=== PATIENT | female | born 1950 | race Caucasian/White ===

== ENCOUNTER 2019-11-29 12:27 | Inpatient (IN) | payer MEDICARE ==
[~2019-11-29] VITALS: Ht 170.2 cm; Wt 69.9 kg
--- NOTE | ~2019-11-29 | CON ---
[address] [address] CONSULTATION Name: FARIDA VITALE Room: [address] IN M.R.#: [id number] Admission: 11/29/19 Attend Phys: Mila Ba Discharge: Date of : 46 Report #: [id number] THIS REPORT FOR: //name// cc: Krystian Francois MD, Ammon L. MD ~ THIS REPORT FOR: //name// CC: Krystian Cornejo DATE OF SERVICE: 12/14/2019 HISTORY OF PRESENT ILLNESS: This is a 68-year-old female patient who was evaluated by me for altered mental status. The patient is not a reliable historian. I talked to the nurses looking after this patient and we will try to reach the family. It is not certain how long this is going on. I reviewed the records. This patient came to Emergency Room because patient's neighbor called the police for wellness check and they did not find her well and brought her here. Record indicates she has atrial fibrillation, but is noncompliant with the treatment. Record indicates she has a history of rheumatoid arthritis. It does not look like she was taking her anticoagulation properly when she came to the hospital. She did have a CT scan of the head when she came on 10/29 that did not show any acute changes. One of the records says that usually she is oriented. That is all the history I can get in this patient at the moment. REVIEW OF SYSTEMS: Indicate that she had swelling in the lower extremities. Nurses tell me that she is progressively becoming better. Even then, her mental status is not very good. She has been slow to respond to questions. She has a history of pleural effusion. She has a stenosis of multiple vessels. I am not sure what the etiology of that is. She has encephalopathy. She has been seen by multiple consultants during this hospitalization. Presently, she is not on any anticoagulation and in fact has a chest tube put in. It is very difficult to get more history in this patient because the patient's mentation is not very good. She has been noticed to have atrial flutter, history of brachial thrombosis, rheumatoid arthritis, history of melanoma, hypernatremia. One of the records says she also has trace ascites and cardiomegaly. This was a relevant 14-point review of system I could get. PAST MEDICAL HISTORY: Positive for multiple problems. FAMILY HISTORY: Unavailable. SOCIAL HISTORY: Somewhat confusing because records says that she was in because the neighbor called the police but other records say differently. We will try to contact some family member [place] [address] CONSULTATION Name: FARIDA VITALE Room: [address] ADM IN .R.#: [id number] Admission: 11/29/19 Attend Phys: Mila Ba Discharge: Date of : 46 Report #: [id number] PHYSICAL EXAMINATION: Indicate patient is alert. She is responsive. She does not know what month it is. She could tell me what hospital she is in, but she did not know the name of president and she said it is He[facility] Crow. Cranial nerve examination 2-12 was attempted, but she was not able to cooperate. The exam was suboptimal, but looks nonfocal. She moves all 4 extremities. She does not understand the instruction to do the position sense. Touch looks intact. Reflexes she did not relax. She did not understand the instructions for doing the cerebellar examination and she did not cooperate with the fundus. It was difficult to carry out rest of the neurological examination. Pulses are difficult to feel. She had some edema, but does not look too bad now. She has atrial fibrillation. She does have respiratory difficulty and in fact is being followed by Pulmonary. She is moderately built individual who does not have any dysmorphic features of eyes, ears and face. Blood pressure is 131/73, respiration is 19, pulse is 68, temperature is 96.7. LABORATORY DATA: White count is 7.7. Sodium is 142. She did have a CT scan on admission that was reviewed and does not show any acute abnormality. IMPRESSION: Pretty difficult to form in this patient. I cannot reach any family and it is possible she has some underlying dementia and she got decompensated by superimposed encephalopathy, but the diagnosis of dementia is always difficult to make in the presence of encephalopathy especially in these circumstances when no family member who is living with her is available. RECOMMENDATION: I will discuss the patient with you. I will get an EEG done. Depending upon the chest tube, we may have to do an MRI of the brain or repeat CT. We will talk to the deputy clerk before doing that and I will discuss the patient with you before doing any of that. We will also try to reach some family if we can. Thank you very much for this referral. By: [id number] Ramírez MD /nt
--- NOTE | ~2019-11-29 | EEG ---
[address] [address] EEG STUDY REPORT Name: FARIDA VITALE Room: [address] IN .R.#: [id number] Admission: 11/29/19 Attend Phys: Mila Ba Discharge: Date of : 46 Report #: [id number] THIS REPORT FOR: //name// CC: Krystian Cornejo DATE OF SERVICE: 12/15/2019 This patient is being evaluated for altered mental status. EEG was done by placing the electrode by standard 10-20 system of electrode placement. Both referential and sequential montages were used for recording. Background activity in this patient's EEG is about 7 Hz and 30 mV. It is symmetrical activity. The patient became drowsy that is associated with bilateral slowing. Photic stimulation is unremarkable. No active epileptiform activity was noticed. IMPRESSION AND PLAN: This patient's EEG is slow in generalized fashion. That is a nonspecific abnormality, which can occur with dementia, encephalopathy, and effect of psychotropic medication. The EEG also appeared to be symmetrical. It is not clear if it is because of artifact or it is real. Thank you very much for this referral. By: [id number] Ramírez MD /nt
[~2019-11-29 12:27] MED LIST: ADULT LOW DOSE81 MG PO; ELIQUIS5 MG PO; HYDROXYCHLOROQ200 M1 PO; IBUPROFEN 800800 M1 PO; LEVOTHYROXIN0.025 MG PO; LOSARTAN PO; METHOTREXATE 22.5 MG PO; THREONINE PO; VITAMIN D2000 UNIT PO
[2019-11-29 12:28] VITALS: BP 157/79
[2019-11-29] MEDS ORDERED: TRAMADOL 50 MG50 MG PO (12:31)
[2019-11-29] MEDS ORDERED: TYLENOL325 M1 PO (12:32)
[2019-11-29 13:10] LABS: HEMATOCRIT 37.5 % (37.0-47.0); HEMOGLOBIN 11.6 gm/dL (12.0-15.0); MCH 26.4 pg (26.0-34.0); MCV 85.2 fL (80.0-100.0); MPV 7.5 fl. (7.2-11.1); NUCLEATED RBCS 0 /100WBC; PLATELET COUNT* 351 thou/uL (150-400); RDW-CV 18.1 % (10.5-14.5); WBC 21.6 thou/uL (4.0-11.0)
[2019-11-29 13:17] LABS: APTT 31.1 Seconds (25.0-31.3); CALCIUM 8.4 mg/dL (8.5-10.1); CREATININE 0.9 mg/dL (0.6-1.3); INR 1.1; POTASSIUM 5.1 mmol/L (3.5-5.1); PROTIME 11.5 Seconds (9.20-11.50)
[2019-11-29] MEDS ORDERED: ZANAFLEX4 M1 PO (13:22)
[2019-11-29] MEDS ORDERED: ELIQUIS5 MG PO (13:22)
[2019-11-29] MEDS ORDERED: CYTOMEL50 MCG PO (13:22)
[2019-11-29] MEDS ORDERED: K-DUR10 MEQ PO (13:23)
[2019-11-29] MEDS ORDERED: LASIX 40 MG TAB40 MG PO (13:23)
[2019-11-29] MEDS ORDERED: METHOTREXATE 22.5 M1 PO (13:23)
[2019-11-29] MEDS ORDERED: LEVO-T100 MCG PO (13:23)
[2019-11-29] MEDS ORDERED: FOLIC ACID1 MG PO (13:23)
[2019-11-29] MEDS ORDERED: CLARITIN10 M3 PO (13:24)
[2019-11-29] MEDS ORDERED: VITAMIN D325 MC4 PO (13:24)
[2019-11-29 13:27] LABS: TOTAL BILIRUBIN 0.9 mg/dL (<0.1-1.0)
[2019-11-29 13:30] LABS: ABSOLUTE LYMPHOCYTES 0.9 thou/uL (0.8-5.3); ABSOLUTE MONOCYTES 0.6 thou/uL (0.0-1.2); ABSOLUTE NEUTROPHILS 20.1 thou/uL (1.6-8.1); ANISOCYTOSIS 1+; PLATELET ESTIMATE ADEQUATE
--- NOTE | 2019-11-29 15:17 | EKG ---
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1950 Requested By: Regan Pettit Order Number: [id number] MD: Víctor Crabtree Measurements Intervals [place] Rate: 87 P: 71 HI: 148 QRS: 21 QRSD: 90 T: 151 QT: 342 QTc: 412 Interpretive Statements Sinus rhythm Supraventricular bigeminy Borderline low voltage, extremity leads Abnormal T, consider ischemia, lateral leads Compared to ECG 11/24/2015 23:29:38 T-wave abnormality now present Possible ischemia now present Electronically Signed On 11-29-2019 15:17:23 CDT by Víctor Crabtree [email or web address] <ELECTRONICALLY SIGNED> By: Víctor Crabtree MD, [facility] 11/29/19 1517 1234 1234 Víctor Crabtree MD, [facility] /EPI
[2019-11-29 16:02] VITALS: BP 137/72
[2019-11-29 16:35] VITALS: BP 146/97
--- NOTE | 2019-11-29 18:20 | NUR ---
PT ADMITTED TO FLOOR AT 1630 FROM ER. PLACED ON O2 2L NC, SATS IN UPPER 90S. AFIB ON MONITOR. PT INCOHERENT PERIODS OF TIME, DENIES PAIN. AOX1-2, ORIENTED PT TO ROOM AND BED CONTROLS, PLACED ON BED ALARM. ADMISSION INTERVENTIONS COMPLETED. DR. MANN AWARE OF PT. STATUS AND ARRANGING THORACENTESIS. PT IN BED, SLEEPING, IN NO APPARENT DISTRESS AT TIME OF SHIFT CHANGE.
[2019-11-29 19:52] LABS: BE 3.1 mmol/L (-2 to +3); PCO2 VENOUS 62.3 mmHg (41.0-51.0); PO2 VENOUS 32.9 mmHg (35.0-45.0)
[2019-11-29 20:00] VITALS: BP 128/82
[2019-11-30] VITALS: BP 136/95
[2019-11-30 04:00] VITALS: BP 146/89
[2019-11-30 08:00] VITALS: BP 158/59
[2019-11-30 12:59] LABS: BF RBC 1855006 /mm3; TOTAL CELL COUNT 1108 /mm3
[2019-11-30 13:19] LABS: CLARITY TURBID; SOURCE THORACENTESIS; TOTAL VOLUME 2150 ml
[2019-11-30 13:26] LABS: BF LYMPHOCYTES 28 %; BF POLYS 72 %
[2019-11-30 13:27] LABS: BF OTHER CYTO TO FOLLOW
[2019-11-30 16:16] LABS: ALBUMIN 2.5 g/dL (3.4-5.0); CALCIUM 8.1 mg/dL (8.5-10.1); CREATININE 0.9 mg/dL (0.6-1.3); POTASSIUM 4.1 mmol/L (3.5-5.1); TOTAL BILIRUBIN 0.6 mg/dL (<0.1-1.0); TOTAL PROTEIN 6.5 g/dL (6.4-8.2)
[2019-11-30 16:23] VITALS: BP 112/65
--- NOTE | 2019-11-30 18:24 | NUR ---
PATIENT RESTING IN BED. THORACENTESIS COMPLETD TODAY. LEFT LUNG SOUND IMPROVEMENT. VSS. PATIETN IN NO APPARNET DISTRESS. RESPIRATORY RATE CONTINUIES AT 25-25 PER/MINUTE. 4L PER NASAL CANULA WIT O2 SAT OF 100%.
[2019-11-30 20:00] VITALS: BP 108/68
[2019-12-01] VITALS: BP 113/62
[2019-12-01 04:00] VITALS: BP 104/56
[2019-12-01 05:05] LABS: ABSOLUTE LYMPHOCYTES 0.4 thou/uL (0.8-5.3); ABSOLUTE MONOCYTES 0.3 thou/uL (0.0-1.2); ABSOLUTE NEUTROPHILS 10.8 thou/uL (1.6-8.1); HEMATOCRIT 38.9 % (37.0-47.0); HEMOGLOBIN 12.1 gm/dL (12.0-15.0); LYMPHOCYTES 3.9 %; MCH 26.4 pg (26.0-34.0); MCHC 31.2 g/dL (28.0-37.0); MCV 84.8 fL (80.0-100.0); MONOCYTES 2.9 %; NUCLEATED RBCS 0 /100WBC; PLATELET COUNT* 331 thou/uL (150-400); POLYS 93.2 %; RBC 4.58 mil/uL (4.20-5.00); RDW-CV 17.3 % (10.5-14.5); WBC 11.6 thou/uL (4.0-11.0)
[2019-12-01 05:15] LABS: INR 1.1; PROTIME 11.5 Seconds (9.20-11.50)
[2019-12-01 05:39] LABS: ALBUMIN 2.4 g/dL (3.4-5.0); CALCIUM 7.9 mg/dL (8.5-10.1); CREATININE 0.8 mg/dL (0.6-1.3); POTASSIUM 3.4 mmol/L (3.5-5.1); TOTAL BILIRUBIN 0.6 mg/dL (<0.1-1.0); TOTAL PROTEIN 6.2 g/dL (6.4-8.2)
[2019-12-01 08:00] VITALS: BP 126/71
[2019-12-01 12:28] VITALS: BP 108/72
[2019-12-01 16:49] VITALS: BP 136/79
--- NOTE | 2019-12-01 18:40 | NUR ---
PATIENT RESTING IN BED. 4L PER NASAL CANULA. POSSIBLE THORACENTESIS TOMORROW PER PULMONARY. AOX2 AND NEED FFREQUENT REORIENTATIOPN. CONVERSATIONO WAS HAD WITH HER NIECE, LAN PLASENCIA @ [phone], REGARDING POTENTIAL ASSISTANCE WITH DECISION MAKING PROCESS, SHE WAS HESITANT. SPOKE WITH CLOSEST FRIEN AND NEIGHBOR WHO WERE INFORMATIVE REGARDING HER PREVIOUS LEVEL OF FUNCTION. THEY BOTH EXPRESSED CONCERNS ABOUT HER ABILITY TO RETURN HONME SAFELY. HOURLY ROUNDING COMPLETED FOR PATINET SAFETY.
[2019-12-01 20:00] VITALS: BP 104/63
[2019-12-02] VITALS (7 sets, daily range): BP systolic 105–141; BP diastolic 47–90
--- NOTE | 2019-12-02 10:34 | NUR ---
RECEIVED CALL FROM PT'S FRIEND AVEL. SHE STATES THAT SHE IS CONCERNED FOR PT SHE HAS NOT BEEN TAKING CARE OF HERSELF OR HER HOUSE SINCE HER 2 YEARS AGO. A NEIGHBOR SHAY HELPS PT. PT HAS NO FAMILY. SHE STATES THAT PT IS INTERMITTENTLY CONFUSED "BECAUSE SHE PLAYS AROUND WITH HER PILLS AND DOESNT TAKE THEM RIGHT SOMETIMES". WILL PASS ON CONCERNS TO CM
--- NOTE | 2019-12-02 11:56 | NUR ---
PT UNABLE TO SIGN CONSENT. NO FAMILY. NO DPOA. DISCUSSED WITH DR CORRALES AND DR MCKEE. CONSENT SIGNED BY STAFF MEDICAL NECESSITY
--- NOTE | 2019-12-02 12:25 | CON ---
[address] [address] CONSULTATION Name: FARIDA VITALE Room: [address] IN [facility]#: [id number] Admission: 11/29/19 Attend Phys: Mila Ba Discharge: Date of : 46 Report #: [id number] THIS REPORT FOR: //name// cc: Krystian Francois MD, Ammon L. MD ~ THIS REPORT FOR: //name// CC: Krystian Cornejo DATE OF SERVICE: 12/01/2019 CARDIOLOGY CONSULTATION HISTORY OF PRESENT ILLNESS: The patient is a very pleasant 68-year-old female who presented with altered mental status to the Emergency Room yesterday. She was noted to have in addition to the altered mental status, a left hemothorax with shifting of the mediastinum to the right. She ultimately underwent ultrasound-guided thoracentesis with removal of 2800 mL of bloody fluid. There is a past medical history of melanoma and rheumatoid arthritis. The patient is more comfortable today, is breathing better and there is more clarity in her historical responses. She denies chest pain or dyspnea. PRIOR MEDICATIONS: Have included Tylenol, apixaban or Eliquis 5 mg b.i.d., furosemide, L-thyroxine, methotrexate, folic acid, cholecalciferol, loratadine. There is a history of right brachial embolic event in the past and the patient has been anticoagulated with Eliquis up until this admission. It has been continued in the presence of the left hemothorax. SOCIAL HISTORY: The patient is a nonsmoker. Drinks occasionally. She functions independently. REVIEW OF SYSTEMS: Remarkable for the following: GENERAL: There is altered mental status on admission. PULMONARY: The patient was dyspneic on admission, which is improved at this point. MUSCULOSKELETAL: There is a history of rheumatoid arthritis. PHYSICAL EXAMINATION: GENERAL: Demonstrates a frail-appearing elderly female who [place] [address] CONSULTATION Name: FARIDA VITALE Room: [address] IN [facility]#: [id number] Admission: 11/29/19 Attend Phys: Mila Ba Discharge: Date of : 46 Report #: [id number] VITAL SIGNS: Blood pressure is 125/70, pulse rate is 103 and regular, respirations are 24 per minute. NECK: Jugular venous pressure is normal. CHEST: Clear. CARDIAC: Reveals normal first and second heart sounds and a mildly tachycardic rate. LUNGS: Auscultation of the chest demonstrates decreased breath sounds in the lower half of the left chest. ABDOMEN: Mildly distended. EXTREMITIES: Reveal modest bilateral lower extremity edema. LABORATORY DATA: Remarkable for white blood cell count 11,600, hemoglobin 12.1, platelets 331,000. Sodium 145, potassium 3.4, BUN 29, creatinine 0.8. Troponin less than 0.06. NT-BNP 6263. Albumin 2.4, prealbumin 10.8. Thoracentesis, 2800 mL of bloody fluid were removed, with data regarding that fluid pending. IMPRESSION: 1. Left hemothorax with mediastinal shift to the right. 2. 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 3. Removal of 2800 mL of bloody fluid from the left hemothorax on 11/29. 4. History of melanoma. 5. History of rheumatoid arthritis. RECOMMENDATIONS: 1. We should not restart Eliquis in the context of the markedly bloody fluid removed from the left chest yesterday. 2. Echocardiogram regarding LV size and function as well as the presence or absence of pericardial disease and/or fusion. 3. We will follow with you. Thank you for allowing us to see the patient in cardiovascular assessment. Critical care time is 35 minutes from overnight and 30 at 1005 on 12/01/2019. <ELECTRONICALLY SIGNED> By: Víctor Crabtree MD, FACC 12/02/19 1225 1005 1024Víctor Crabtree MD, FACC /nt
[2019-12-02 13:23] LABS: CALCIUM 7.7 mg/dL (8.5-10.1); CREATININE 0.8 mg/dL (0.6-1.3); MAGNESIUM 1.9 mg/dL (1.8-2.4); POTASSIUM 3.3 mmol/L (3.5-5.1)
--- NOTE | 2019-12-02 13:33 | 2DMMODE ---
[place] [address] 2 D/M-MODE ECHOCARDIOGRAM Name: FARIDA VITALE Room: [address] IN [facility]#: [id number] Admission: 11/29/19 Attend Phys: Era Cornejo Discharge: Date of : 46 Date of Service: 12/02/19 1333 Report #: [id number] THIS REPORT FOR: cc: Krystian Francois MD, Ammon L. MD Holkins,Víctor Swanson MD [facility] ~ APPROVED REPORT Study performed: 12/02/2019 10:47:03 EXAM: Comprehensive 2D, Doppler, and color-flow Echocardiogram Patient Location: In-Patient Room #: [facility] Status: routine BSA: 1.92 HR: 107 bpm BP: 141/83 mmHg Rhythm: NSR Other Information Technically limited study due to uncooperative patient. Indications Dyspnea 2D Dimensions IVSd: 14.06 (7-11mm) LVOT Diam: 19.89 (18-24mm) LVDd: 42.34 mm PWd: 12.30 (7-11mm) LVDs: 30.17 (25-40mm) Aortic Root: 32.41 mm Volumes Left Atrial Volume (Systole) LA ESV Index: 44.90 mL/m2 Aortic Valve AoV Peak Donnell.: 1.28 m/s AO Peak Gr.: 6.59 mmHg LVOT Max P.53 mmHg AO Mean Gr.: 4.51 mmHg LVOT Mean P.26 mmHg LVOT Max V: 1.28 m/s AO V2 VTI: 22.42 cm LVOT Mean V: 0.86 m/s KORIN (VTI): 2.72 cm2 LVOT V1 VTI: 19.61 [place] [address] 2 D/M-MODE ECHOCARDIOGRAM Name: FARIDA VITALE Room: [address] IN [facility]#: [id number] Admission: 11/29/19 Attend Phys: Era Cornejo Discharge: Date of : 46 Date of Service: 12/02/19 1333 Report #: [id number] Pulmonary Valve PV Peak Donnell.: 1.16 m/s PV Peak Gr.: 5.39 mmHg Left Ventricle The left ventricle is normal size. There is normal LV segmental wall motion. There is normal left ventricular wall thickness. Left ventricular systolic function is normal. The left ventricular ejection fraction is within the normal range. LVEF is 65-70%. Right Ventricle The right ventricle is normal size. The right ventricular systolic function is normal. Atria Left atrium is moderately dilated. The right atrium size is normal. Aortic Valve The aortic valve is normal in structure. No aortic regurgitation is present. There is no aortic valvular stenosis. Mitral Valve There is mitral annular calcification. There is no mitral valve regurgitation noted. No evidence of mitral valve stenosis. Tricuspid Valve The tricuspid valve is normal in structure. Unable to assess PA pressure. Trace tricuspid regurgitation. Pulmonic Valve The pulmonary valve is normal in structure. There is no pulmonic valvular regurgitation. Great Vessels The aortic root is normal in size. IVC is normal in size and collapses >50% with inspiration. Pericardium There is no pericardial effusion. <Conclusion> The left ventricle is normal size. There is normal left ventricular wall thickness. Left ventricular systolic function is normal. The left ventricular ejection fraction [place] [address] 2 D/M-MODE ECHOCARDIOGRAM Name: FARIDA VITALE Room: [address] IN .R.#: [id number] Admission: 11/29/19 Attend Phys: Era Cornejo Discharge: Date of : 46 Date of Service: 12/02/19 1333 Report #: [id number]. LVEF is 65-70%. Left atrium is moderately dilated. The right atrium size is normal. The aortic valve is normal in structure. There is mitral annular calcification. There is no mitral valve regurgitation noted. No evidence of mitral valve stenosis. The tricuspid valve is normal in structure. IVC is normal in size and collapses >50% with inspiration. There is no pericardial effusion. There is normal LV segmental wall motion. <ELECTRONICALLY SIGNED> By: Víctor Crabtree MD, [facility] 12/02/19 1333 32 32 Víctor Crabtree MD, FACC /INF
--- NOTE | 2019-12-02 15:22 | NUR ---
CM INFORMED BY NURSING THAT THE PT IS FROM [facility]. CM SPOKE TO ISABELL WITH ADMISSIONS AT [facility] AND SHE INFORMS THAT THE PT IS A LTC RESIDENT. PT'S SON MARCUS IS THE DPOA. CM ATTEMPTED TO CONTACT THE PT'S SON TO DISCUSS DISCHARGE PLANNING NEEDS AND AM AWAITING A CALLBACK. CM FAXED [facility] PT'S FACESHEET AND H&P. CM WILL REMAIN AVAILABLE TO ASSIST AND FOLLOW NEEDED.
--- NOTE | 2019-12-02 15:31 | NUR ---
CM INFORMED THAT THE PT IS CONFUSED AND TO CONTACT HER NEIGHBOR AND FRIEND (SHAY) FOR INFO ABOUT THE PT. CM CONTACTED SHAY AND SHE INFORMS THAT THE PT HAD BEEN MORE CONFUSED RECENTLY. SHAY CHECKS-IN ON THE PT 2X DAILY AND ASSIST HER WITH BATHING, DRESSING, PREPARING LIGHT MEALS AND MEDICATION SETUP, AND SOME LIGHT INSIDE TESTER. PT RESIDES AT HOME ALONE, AND HAS NOT BEEN TAKING GOOD CARE OF HESELF 'NOT BATHING, EATING, OR TAKING HER MEDICATIONS. SHE IS VERY FORETFUL, PLACING THINGS ODDLY AROUND THE HOUSE (FOOD UNDER THE SINK), FORGETTING WHERE SHE IS AND MIXING UP HER DAYS AND NIGHTS'. SHE ALSO INFORMS THAT THE PT HAD BEEN HOTLINED TWICE RECENTLY. PT HAS POOR FAMILY SUPPORT, AND ONLY HAS A NIECE. HOWEVER THE NIECE HAS DECLINED TO MAKE ANY DECISIONS FOR THE PT. PT'S SPOUSE AND BROTHER PASSED IN 2017 AND 2019, AND NO OTHER FAMILY IS KNOWN. SHAY INFORMS THAT SHE 'CAN NO LONGER BE OF ASSISTANCE' TO THE PT AND 'CAN NOT HELP HER IF AND WHEN SHE RETURN HOME' HER 'MENTAL STATUS AND THE PHYSICAL ASSISTANCE NEEDED TO HELP HER IS MORE THAN I CAN DO ANYMORE'. PT DOES NOT HAVE A DPOA. CM AWAITNG CALL FROM [facility] THE PT HAS BEEN HOTLINED. CM WILL REMAIN AVAILABLE TO ASSIST AND FOLLOW NEEDED.
[2019-12-02 16:17] LABS: SOURCE PLEURAL FLUID; TOTAL VOLUME 860 ml
[2019-12-02 16:18] LABS: CLARITY TURBID
[2019-12-02 16:51] LABS: BF RBC 1287382 /mm3; TOTAL CELL COUNT 595 /mm3
--- NOTE | 2019-12-02 17:42 | NUR ---
PT RESTING IN BED THROUGHOUT SHIFT. PT REPOSITIONS SELF FREQUENTLY. CONFUSED. PT WILL OCASSIONALLY ATTEMPT TO PULL AT IV LINE AND FREEMAN BUT EASILY REDIRECTED. THORACENTESIS THIS AFTERNOON. PT SOA WITH EXERTION.02@2L. GOOD APPETITE. SPOKE TO FRIENDS AND UPDATED THEM ON CARE.
[2019-12-02 18:06] LABS: CA 27.29-BREAST CARCINOMA AG 37.1 U/mL (0.0-38.6)
[2019-12-02 18:09] LABS: BF LYMPHOCYTES 8 %; BF MONOCYTES 4 %; BF POLYS 88 %
--- NOTE | 2019-12-02 19:08 | NUR ---
PT TACHYCARDIC. REPORTS RIGHT SIDE CHEST PAIN,DIAPHORETIC. LUNGS SOUNDS DIMINISHED ON RIGHT
[2019-12-03 00:30] VITALS: BP 113/59
[2019-12-03 02:06] LABS: BODY FLUID PH 7.3 (Not Estab.)
[2019-12-03 04:28] VITALS: BP 110/66
[2019-12-03 04:57] LABS: HEMATOCRIT 42.3 % (37.0-47.0); HEMOGLOBIN 12.9 gm/dL (12.0-15.0); MCH 26.4 pg (26.0-34.0); MCHC 30.5 g/dL (28.0-37.0); MCV 86.3 fL (80.0-100.0); MPV 8.2 fl. (7.2-11.1); NUCLEATED RBCS 0 /100WBC; PLATELET COUNT* 320 thou/uL (150-400); RDW-CV 17.7 % (10.5-14.5); WBC 14.4 thou/uL (4.0-11.0)
--- NOTE | 2019-12-03 05:29 | NUR ---
PT HR 130-140 PROVIDER NOTIFED ORDERS RECIEVED. HR RETURING TO NORMAL LIMITS. NEW IV PLACED IN PT AFTER PT REMOVED PREVIOUS IV. PT REMAINS ALERT TO ONLY SELF AND CONFUSED. HEART MONITOR PLACED ON PT BACK DUE TO PT REMOVING HEART MONITOR, PT GIVEN ATIVAN WITH LITTLE EFFECT ON PT.
[2019-12-03 05:49] LABS: ALBUMIN 2.9 g/dL (3.4-5.0); CALCIUM 8.6 mg/dL (8.5-10.1); CREATININE 0.8 mg/dL (0.6-1.3); MAGNESIUM 2.2 mg/dL (1.8-2.4); POTASSIUM 3.8 mmol/L (3.5-5.1); TOTAL BILIRUBIN 0.9 mg/dL (<0.1-1.0); TOTAL PROTEIN 6.6 g/dL (6.4-8.2)
[2019-12-03 07:46] LABS: ABSOLUTE LYMPHOCYTES 1.7 thou/uL (0.8-5.3); ABSOLUTE MONOCYTES 0.7 thou/uL (0.0-1.2); ANISOCYTOSIS 1+; ATYPICAL LYMPHS 4 %; PLATELET ESTIMATE ADEQUATE
[2019-12-03 08:00] VITALS: BP 109/59
--- NOTE | 2019-12-03 09:42 | EKG ---
[place] [address] ELECTROCARDIOGRAM REPORT Name: FARIDA VITALE Room: [address] ADM IN .R.#: [id number] Admission: 11/29/19 Attend Phys: Era Cornejo Discharge: Date of : 46 Date of Service: 12/02/192057 Report #: [id number] THIS REPORT FOR: //name// [facility] Test Date: 2019-12-02 Test Time: 20:58:08 Pat Name: FARIDA VITALE Department: Room: [address] Gender: F Kaiawhina Kohanga Reo: : 1950 Requested By: Yazmin Callejas Order Number: [id number] Reading MD: Clive Alfaro Measurements Intervals [place] Rate: 138 P: [place]: QRS: 7 QRSD: 80 T: 149 QT: 319 QTc: 484 Interpretive Statements Atrial fibrillation Borderline low voltage, extremity leads Borderline repolarization abnormality Compared to ECG 11/29/2019 12:34:17 Sinus rhythm no longer present Atrial premature complex(es) no longer present T-wave abnormality no longer present Possible ischemia no longer present Electronically Signed On 12-03-2019 9:42:35 CDT by Clive Alfaro [email or web address] <ELECTRONICALLY SIGNED> By: Clive Alfaro MD, [facility] 12/03/19941 57 57 Clive Alfaro MD, [facility] /EPI
--- NOTE | 2019-12-03 11:27 | NUR ---
Pt not medically ready to dc and also pending guardianship process, placement challenges likely. SW to continue to follow to assist with finalizing safe dc plan.
[2019-12-03 12:00] VITALS: BP 113/67
[2019-12-03 16:00] VITALS: BP 103/48
[2019-12-03 19:30] VITALS: BP 111/58
[2019-12-04] VITALS: BP 114/65
[2019-12-04 04:00] VITALS: BP 134/69
[2019-12-04 04:49] LABS: ABSOLUTE LYMPHOCYTES 0.5 thou/uL (0.8-5.3); ABSOLUTE MONOCYTES 0.7 thou/uL (0.0-1.2); ABSOLUTE NEUTROPHILS 9.1 thou/uL (1.6-8.1); BASOPHILS 0.2 %; HEMATOCRIT 36.2 % (37.0-47.0); HEMOGLOBIN 11.3 gm/dL (12.0-15.0); LYMPHOCYTES 4.8 %; MCH 26.7 pg (26.0-34.0); MCHC 31.1 g/dL (28.0-37.0); MCV 85.7 fL (80.0-100.0); MONOCYTES 7.2 %; MPV 8.2 fl. (7.2-11.1); NUCLEATED RBCS 0 /100WBC; POLYS 87.8 %; RBC 4.22 mil/uL (4.20-5.00); RDW-CV 17.5 % (10.5-14.5); WBC 10.3 thou/uL (4.0-11.0)
[2019-12-04 04:51] LABS: PLATELET COUNT* 230 thou/uL (150-400)
[2019-12-04 05:00] LABS: ALBUMIN 2.6 g/dL (3.4-5.0); ALKALINE PHOSPHATASE 78 U/L (46-116); BUN 27 mg/dL (7-18); CHLORIDE 109 mmol/L (98-107); CREATININE 0.7 mg/dL (0.6-1.3); GLUCOSE 120 mg/dL (70-99); MAGNESIUM 2.2 mg/dL (1.8-2.4); POTASSIUM 3.9 mmol/L (3.5-5.1); SGOT 66 U/L (15-37); SGPT 69 U/L (30-65); SODIUM 154 mmol/L (136-145); TOTAL BILIRUBIN 0.8 mg/dL (<0.1-1.0); TOTAL PROTEIN 5.6 g/dL (6.4-8.2)
[2019-12-04 05:03] LABS: CO2 > 45 mmol/L (21-32)
--- NOTE | 2019-12-04 06:52 | NUR ---
PT UNABLE TO PASS BEDSIDE SWALLOW, PLACED ON NPO AND SPEECH WAS CONSULTED.
[2019-12-04 08:00] VITALS: BP 107/61
[2019-12-04 09:18] LABS: BE 12.8 mmol/L (-2 to +3); PO2 85.9 mmHg (75.0-100.0); pH 7.385 (7.340-7.450)
[2019-12-04 09:21] LABS: PCO2 69.2 mmHg (35.0-45.0)
[2019-12-04 12:35] LABS: ANION GAP < 0 mmol/L (7-16); BUN 25 mg/dL (7-18); CALCIUM 8.2 mg/dL (8.5-10.1); CHLORIDE 105 mmol/L (98-107); CREATININE 0.8 mg/dL (0.6-1.3); GLUCOSE 203 mg/dL (70-99); POTASSIUM 4.4 mmol/L (3.5-5.1); SODIUM 149 mmol/L (136-145)
[2019-12-04 12:37] LABS: CO2 45 mmol/L (21-32)
[2019-12-04 13:00] VITALS: BP 151/103
--- NOTE | 2019-12-04 15:31 | NUR ---
KYRA received message from pt neighbor Virgilio to follow up with pt dc planning and status. Virgilio is concerned with pt bird in pt home and Virgilio assists with feeding and caring for the bird while pt has been hospitalized and also noticed that her bills are going to be due. SW suggested since pt did want pt neighbor to help care for bird and gave her a gary, this should be acceptable and that since there is no a financial DPOA, there is unfortunately nothing to be able to pay them for pt. Pt neighbor plans to call the utilities and explain situation to possibly hold or at least make the companies aware of inability of pt to take care of bills at the moment. KYRA spoke with legal about guardianship process this morning and the question is to also involve neurologist and 2 doctors needed to declare pt incapacitated; if this is the case, then legal willing to move on to next step in the process. SW was informed pt medical status is poor; SW to continue to follow to assist with pt needs and support team as necessary.
[2019-12-04 16:20] VITALS: BP 138/71
[2019-12-04 16:31] LABS: SOURCE THORACENTESIS
[2019-12-04 16:32] LABS: SOURCE PLEURAL
[2019-12-04 16:46] LABS: URINE BILIRUBIN NEGATIVE (Negative); URINE BLOOD NEGATIVE (Negative); URINE CLARITY CLEAR; URINE COLOR YELLOW; URINE GLUCOSE-RANDOM NEGATIVE (Negative); URINE KETONES TRACE (Negative); URINE LEUKOCYTES-REFLEX NEGATIVE (Negative); URINE NITRITE-REFLEX NEGATIVE (Negative); URINE PROTEIN 1+ (Negative)
--- NOTE | 2019-12-04 19:50 | NUR ---
PT. AOX1-2, CONFUSED, FLAT AFFECT, AMIODARONE ADMINISTERED FOR HR CONTROL, DENIES PAIN. IVF INFUSING WITHOUT COMPLICATIONS. SITTER IN ROOM FOR OBSERVATION AND ASSIST WITH MEALS. CALL LIGHT AND PERSONAL BELONGINGS PLACED WITHIN REACH. PT IN BED, SLEEPING, IN NO APPARENT DISTRES, AT SHIFT CHANGE.
[2019-12-04 21:00] VITALS: BP 152/86
[2019-12-05] VITALS: BP 145/97
[2019-12-05 04:00] VITALS: BP 149/98
--- NOTE | 2019-12-05 05:25 | NUR ---
No acute event this shift. Pt AOX2. Pt has a sitter. Pt calm and pleasant overnight. IVF infusing as order. Antibiotic given per jul. Cortez cath draining well. Urine for Strep/Legionella antigen collected, sent to lab. Pt on 3L NC sat 90's. Pt denies pain. Reposition Q2, Safety precaution, hourly rounding, will continue to monitor.
[2019-12-05 05:35] LABS: ABSOLUTE LYMPHOCYTES 0.3 thou/uL (0.8-5.3); ABSOLUTE MONOCYTES 0.2 thou/uL (0.0-1.2); ABSOLUTE NEUTROPHILS 8.3 thou/uL (1.6-8.1); BASOPHILS 0.1 %; HEMATOCRIT 35.3 % (37.0-47.0); HEMOGLOBIN 11.2 gm/dL (12.0-15.0); LYMPHOCYTES 3.3 %; MCH 27.1 pg (26.0-34.0); MCHC 31.6 g/dL (28.0-37.0); MCV 85.6 fL (80.0-100.0); MONOCYTES 1.9 %; MPV 8.2 fl. (7.2-11.1); NUCLEATED RBCS 0 /100WBC; PLATELET COUNT* 192 thou/uL (150-400); POLYS 94.7 %; RBC 4.12 mil/uL (4.20-5.00); RDW-CV 17.4 % (10.5-14.5); WBC 8.8 thou/uL (4.0-11.0)
[2019-12-05 06:38] LABS: ALBUMIN 2.5 g/dL (3.4-5.0); ALKALINE PHOSPHATASE 79 U/L (46-116); ANION GAP < 0 mmol/L (7-16); BUN 19 mg/dL (7-18); CALCIUM 7.5 mg/dL (8.5-10.1); CHLORIDE 104 mmol/L (98-107); CO2 42 mmol/L (21-32); CREATININE 0.6 mg/dL (0.6-1.3); GLUCOSE 138 mg/dL (70-99); POTASSIUM 4.3 mmol/L (3.5-5.1); SGOT 116 U/L (15-37); SGPT 151 U/L (30-65); SODIUM 145 mmol/L (136-145); TOTAL BILIRUBIN 0.9 mg/dL (<0.1-1.0); TOTAL PROTEIN 5.5 g/dL (6.4-8.2)
[2019-12-05 08:00] VITALS: BP 151/79
--- NOTE | 2019-12-05 10:00 | NUR ---
RIGHT BASILC VESSEL ACCESSED FOR 4 ENGLISH SINGLE LUMEN PICC. LINE PRE-TRIMMED TO 40CM AND ADVANCED TO THE ZERO ISSAC WITH NO RESISTANCE MET. UPPER ARM CIRCUMFERENCE ABOVE INSERTION SITE=11 1/2". SHERLOCK MAGNET AND 3CG CONFIRMATION OF TIP TERMINATION AT THE CAVOATRIAL JUNCTION APPRECIATED. GUIDE WIRE REMOVED, LINE FLUSHED AND INSERTION SITE DRESSED. REPORT GIVEN TO HEATHER BROWN.
--- NOTE | 2019-12-05 10:07 | PATH ---
[address] [address] PATHOLOGY RPT PROCEDURE Name: FARIDA VITALE Room: [address] IN [facility]#: [id number] Admission: 11/29/19 Date of : 46 Discharge: Report #: [id number] Path Case #: [id number] Note LCA Accession Number: [id number] TESTS RESULT FLAG UNITS REF RANGE LAB Clinician Provided Cytology Information No. of containers..01 Other (Miscellaneous) Source: LEFT PLEURAL FLUID DIAGNOSIS: 02 LEFT PLEURAL FLUID NEGATIVE FOR MALIGNANT CELLS. REACTIVE MESOTHELIAL CELLS ARE PRESENT. THIS INTERPRETATION INCLUDES EVALUATION OF A CELL BLOCK. ABUNDANT RED BLOOD CELLS ARE PRESENT. COMMENT, MOSTLY BLOOD IS PRESENT WITH VERY FEW CELLS. SUGGEST CLINICAL CORRELATION. Signed out by: 02 Harpal Gerber MD, Pathologist NPI- [id number] Performed by: Amrit George, Handling Tech ([facility]) Gross description: 01 40ML, DARK RED, 1 TP 1 CB /LCS 12/03/2019 1757 Local FLAG LEGEND: L-Low Normal,H-High Normal,LL-Alert Low,HH-Alert High <-Panic Low,>-Panic High,A-Abnormal,AA-Critical Abnormal Performed at: [address] [place] [address] Saurabh Martinez MD, NNEKA[address] [address] Chacorta Dozier MD, Specimen Comment: A courtesy copy of this report has been sent to [phone] Specimen Comment: [phone], Specimen Comment: Report sent to ,DR CORRALES / DR MANN Specimen Comment: A duplicate report has been generated due to demographic updates. Performed at: [address], [place], [place] [id number] [place] [address] PATHOLOGY RPT PROCEDURE Name: FARIDA VITALE Room: [address]#: [id number] Admission: 11/29/19 Date of : 46 Discharge: Report #: [id number] Path Case #: [id number] MD [facility] MD Phone: [phone]
--- NOTE | 2019-12-05 10:07 | PATH ---
[address] [address] PATHOLOGY RPT PROCEDURE Name: FARIDA VITALE Room: [address] IN [facility]#: [id number] Admission: 11/29/19 Date of : 46 Discharge: Report #: [id number] Path Case #: [id number] Note LCA Accession Number: [id number] TESTS RESULT FLAG UNITS REF RANGE LAB Clinician Provided Cytology Information No. of containers..01 Other (Miscellaneous) Source: 01 PLEURAL FLUID DIAGNOSIS: 02 PLEURAL FLUID NEGATIVE FOR MALIGNANT CELLS. RED BLOOD CELLS ARE PRESENT. SCANT CELLULARITY. THIS INTERPRETATION INCLUDES EVALUATION OF A CELL BLOCK. COMMENT, MOSTLY BLOOD IS PRESENT. SUGGEST CLINICAL CORRELATION THE SPECIMEN MIGHT NOT BE CHANCELLOR. Signed out by: 02 Harpal Gerber MD, Pathologist NPI- [id number] Performed by: 01 Farheen George, Chemist Intern ([facility]) Gross description: 01 40ML, DARK RED, 1 TP 1 CB /LCS 12/03/2019 1801 Local FLAG LEGEND: L-Low Normal,H-High Normal,LL-Alert Low,HH-Alert High <-Panic Low,>-Panic High,A-Abnormal,AA-Critical Abnormal Performed at: [address] [place] [address] Saurabh Martinez MD, [address] [address] Chacorta Dozier MD, Specimen Comment: A courtesy copy of this report has been sent to [phone] Specimen Comment: [id number] Specimen Comment: Report sent to / DR MILLER Specimen Comment: A duplicate report has been generated due to demographic updates. Performed at: [address], [place], [place] [id number] [place] [address] PATHOLOGY RPT PROCEDURE Name: FARIDA VITALE Room: [address] IN ..#: [id number] Admission: 11/29/19 Date of : 46 Discharge: Report #: [id number] Path Case #: [id number] [facility] Phone: [phone]
[2019-12-05 12:00] VITALS: BP 150/94
[2019-12-05 16:47] VITALS: BP 130/70
--- NOTE | 2019-12-05 16:56 | NUR ---
KYRA spoke with pt neighbor Virgilio again about possible will in the house to bring in, but Virgilio explained she thought there might be paperwork that could be helpful but there are piles of papers to go through and she hasn't found anything yet. KYRA called pt doctor's office and left a message as well as US faxed records request to request any possible AD or will or any past medical information that would be helpful in determining pt wishes related to care plan. Pending possible guardianship process and SW to continue to follow to assist with safe dc planning.
--- NOTE | 2019-12-05 18:56 | NUR ---
RECEVIED REPORT. ASSUMED CARE OF PT AROUND 0730. PT DROWSY, CONFUSED. ORIENTED TO PERSON. SITTER IN PLACE. SPECIAL SERVICES COORDINATOR IN PLACE. AM ASSESSMENT AND VITALS COMPLETED CHARTED. PT DENIED PAIN OR DISCOMFORT THIS SHIFT. O2 TITRATED DOWN TO 2L PER NC. PT TO USE THE BIPAP WHEN SLEEPING BUT REFUSED THIS SHIFT. RT CALLED NOW TO RETRY FOR NIGHT TIME. PT ABLE TO WORK WITH THERAPY TO GET UP TO BEDSIDE CHAIR. FREEMAN IN PLACE TO DD. GHAZALA PICC PLACED TODAY. PT TURNED OFTEN. PT WITH FAIR APPETITE - TOLERATED ABOUT 35% OF MEALS. IV ANTIBIOTICS CONTINUED. PT CURRENTLY RESTING IN BED. CALL LIGHT IS WITHIN REACH, HOURLY ROUNDING PERFORMED. FALL PRECAUTIONS IN PLACE. SITTER IN PLACE.
[2019-12-05 20:30] VITALS: BP 133/75
[2019-12-06] VITALS (15 sets, daily range): BP systolic 85–144; BP diastolic 38–72
[2019-12-06 05:08] LABS: BE 9.6 mmol/L (-2 to +3); PO2 80.5 mmHg (75.0-100.0)
[2019-12-06 05:10] LABS: pH 7.298 (7.340-7.450)
[2019-12-06 05:11] LABS: PCO2 81.3 mmHg (35.0-45.0)
[2019-12-06 05:12] LABS: ABSOLUTE LYMPHOCYTES 0.3 thou/uL (0.8-5.3); ABSOLUTE MONOCYTES 0.2 thou/uL (0.0-1.2); ABSOLUTE NEUTROPHILS 7.7 thou/uL (1.6-8.1); BASOPHILS 0.1 %; HEMATOCRIT 35.1 % (37.0-47.0); HEMOGLOBIN 11.1 gm/dL (12.0-15.0); MCHC 31.7 g/dL (28.0-37.0); MPV 8.3 fl. (7.2-11.1); NUCLEATED RBCS 0 /100WBC; PLATELET COUNT* 207 thou/uL (150-400); POLYS 93.9 %; RBC 4.12 mil/uL (4.20-5.00); RDW-CV 16.6 % (10.5-14.5); WBC 8.2 thou/uL (4.0-11.0)
[2019-12-06 05:40] LABS: ALBUMIN 2.6 g/dL (3.4-5.0); ALKALINE PHOSPHATASE 80 U/L (46-116); ANION GAP < 0 mmol/L (7-16); BUN 22 mg/dL (7-18); CALCIUM 7.6 mg/dL (8.5-10.1); CHLORIDE 106 mmol/L (98-107); CO2 41 mmol/L (21-32); CREATININE 0.6 mg/dL (0.6-1.3); GLUCOSE 128 mg/dL (70-99); POTASSIUM 4.4 mmol/L (3.5-5.1); SGOT 73 U/L (15-37); SGPT 157 U/L (30-65); SODIUM 146 mmol/L (136-145); TOTAL BILIRUBIN 0.6 mg/dL (<0.1-1.0); TOTAL PROTEIN 5.4 g/dL (6.4-8.2)
--- NOTE | 2019-12-06 06:24 | NUR ---
VSS. PT UP TO CHAIR MUCH OF THE EVENING, TOLERATED WELL. KELLEN TUBIGRIPS REMOVED BY PT AT BEDTIME AND BLE ELEVATED. PT AWOKE X1 C/O BURNING PAIN IN BILATERAL LEGS BELOW KNEE STATING "IT FEELS LIKE MY LEGS ARE ON FIRE." PT DECLINED NEED FOR PAIN MEDICATION. CALL LIGHT WITHIN REACH.
--- NOTE | 2019-12-06 06:32 | NUR ---
VSS. PT REFUSED BIPAP ALL NIGHT, O2 SAT REMAINED 90% ON 2L O2 PER NC. ABG'S OBTAINED THIS AM ORDERED, CRITICAL VALUES CALLED TO DR MCKEE WHO WAS ALSO NOTIFIED OF PTS REFUSAL OF BIPAP; NO NEW ORDERS. RT AGAIN TRIED TO PLACE BIPAP, HOWEVER, PT IMMEDIATELY BECAME AGITATED PUSHING THE MASK/RT'S HAND AWAY. SITTER REMAINED AT BEDSIDE AT ALL TIMES, REDIRECTION AND REORIENTATION TO REALITY PROVIDED FREQUENTLY. CALL LIGHT WITHIN REACH.
--- NOTE | 2019-12-06 08:00 | NUR ---
ASSUMED CARE OF PATIENT FROM NIGHT NURSE. PT IS ON A 1 TO 1 AND IS RESTLESS AND REFUSED TO USE THE BIPAP. SHE WAS EDUCATED ON PLAN OF CARE AND DISEASE PROCEES.
--- NOTE | 2019-12-06 11:30 | NUR ---
PT SENT TO THE ICU AND REPORT GIVEN TO LY.
--- NOTE | 2019-12-06 11:47 | NUR ---
Pt to transfer to ICU today for thoracentesis and intubation. Pending guardian process, med rec request was sent to [facility] yesterday. Pt friend Virgilio at ph [phone] helpful with answering any questions and shows caring and concern for pt. Future CM needs if pt improves would be placement pending guardianship process.
--- NOTE | 2019-12-06 13:50 | NUR ---
Nutrition: Assessed for LOS. Admitted for pleural effusion. Pt was eating fair amounts on diet, now NPO. H/o dementia - apparently trying to arrange guardianship for pt, per SW notes. BG 101, alb 2.6, prealb 19.5. GOAL: timely diet advancement and good po intake. Mild nutrition risk at this time.
--- NOTE | 2019-12-06 14:45 | NUR ---
1110 PATIENT RECEIVED IN TRANSFER PER BED TO ICU 4. SEE ASSESSMENT. BIPAP PLACED AT 14/5 AND 50%. EDUCATED PATIENT ON BIPAP. PT IS FORGETFUL BUT SEEMS TO UNDERSTAND INSTRUCTIONS. SITTER FOR SAFETY.
--- NOTE | 2019-12-06 14:47 | NUR ---
1400 THORACENTESIS DONE AT BEDSIDE BY DR DIAZ. FOLLOW UP CHEST FILM ORDERED
--- NOTE | 2019-12-06 15:05 | EKG ---
[place] [address] ELECTROCARDIOGRAM REPORT Name: FARIDA VITALE Room: [address] IN .R.#: [id number] Admission: 11/29/19 Attend Phys: Era Cornejo Discharge: Date of : 46 Date of Service: 12/06/19 1150 Report #: [id number] THIS REPORT FOR: //name// [facility] Test Date: 2019-12-06 Test Time: 11:50:31 Pat Name: FARIDA VITALE Department: Room: [facility] Gender: F Master Control Supervisor: : [id number] Requested By: Stefania Preston Order Number: [id number] MD: Robi Carbone Measurements Intervals [place] Rate: 54 P: 37 DC: 178 QRS: 31 QRSD: 91 T: 134 QT: 435 QTc: 413 Interpretive Statements Sinus bradycardia Low voltage, extremity leads Nonspecific T abnormalities, lateral leads Compared to ECG 12/02/2019 20:58:08 Atrial fibrillation no longer present Electronically Signed On 12-06-2019 15:04:53 CDT by Robi Carbone [email or web address] <ELECTRONICALLY SIGNED> By: Robi Carbone MD, [facility] 12/06/19 1504 1150 1150 Robi Carbone MD, [facility] /EPI
[2019-12-06 15:21] LABS: BF RBC 2118 /mm3; CLARITY CLEAR; SOURCE PLEURAL FLUID; TOTAL CELL COUNT 159 /mm3; TOTAL VOLUME 500 ml
[2019-12-06 15:41] LABS: BF LYMPHOCYTES 94 %; BF MONOCYTES 1 %; BF POLYS 5 %
--- NOTE | 2019-12-06 17:32 | NUR ---
PATIENT PROGRESSING TOWARDS SOME GOALS. CAME TO ICU FROM TELEMETRY AT 110 THIS AM. MAINTAINED ON BIPAP AND THEN AVAPS WITH ACCEPTAVLE SATS.THORACENTESIS COMPLETED WITH FOLLOW UP CHEST FILM. PT ORIENTED ONLY TO SELF BUT ABLE TO FOLLOW COMMANDS. PRECEDEX AVAILABLE BUT HAVE NOT STARTED IT YET. PT IN SINUS EMILY WITH SOME SOFT BLOOD PRESSURES FOLLOWING DIURESIS. FRIEND HASCALLED.
[2019-12-06 17:49] LABS: ALBUMIN 2.4 g/dL (3.4-5.0); ALKALINE PHOSPHATASE 73 U/L (46-116); ANION GAP < 0 mmol/L (7-16); BUN 24 mg/dL (7-18); CALCIUM 7.4 mg/dL (8.5-10.1); CHLORIDE 104 mmol/L (98-107); CO2 44 mmol/L (21-32); CREATININE 0.8 mg/dL (0.6-1.3); GLUCOSE 147 mg/dL (70-99); POTASSIUM 3.8 mmol/L (3.5-5.1); SGOT 49 U/L (15-37); SGPT 132 U/L (30-65); SODIUM 144 mmol/L (136-145); TOTAL BILIRUBIN 0.5 mg/dL (<0.1-1.0)
[2019-12-06 18:23] LABS: BE 13.7 mmol/L (-2 to +3); pH 7.392 (7.340-7.450)
[2019-12-06 18:28] LABS: PCO2 69.2 mmHg (35.0-45.0); PO2 147.3 mmHg (75.0-100.0)
--- NOTE | 2019-12-06 19:20 | NUR ---
RECEIVED REPORT FROM PRADEEP BROWN ANS ASSUMED CARE
--- NOTE | 2019-12-06 20:00 | NUR ---
ASSESSMENT COMPLETED PER FLOW. PT AROUSES EASILY. HR 50'S SB WITHOUT ECTOPY. SOFT B/P WITH MAP 75. CONT'S ON BIPAP AND IS COMFORTABLE WITH SATS .95% FREEMAN PATENT TO DD. SHE DENIES PAIN
[2019-12-07] VITALS (20 sets, daily range): BP systolic 92–115; BP diastolic 40–64
--- NOTE | 2019-12-07 01:41 | NUR ---
PATIENT HAS LARGELY SLEPT THUS FAR. B/P 100S/50S WITH CONSISTENT MAP> 70. SHE CONTINUES TO DENY PAIN AND HAS TOUCHED HER MASK OR ATTEMPTED TO REMOVE ANYTHING. POSITION CHANGED Q 2HR
[2019-12-07 03:26] LABS: HEMATOCRIT 30.7 % (37.0-47.0); HEMOGLOBIN 9.7 gm/dL (12.0-15.0); MCH 26.7 pg (26.0-34.0); MCHC 31.7 g/dL (28.0-37.0); MCV 84.2 fL (80.0-100.0); MPV 8.4 fl. (7.2-11.1); NUCLEATED RBCS 0 /100WBC; PLATELET COUNT* 174 thou/uL (150-400); RBC 3.65 mil/uL (4.20-5.00); WBC 5.6 thou/uL (4.0-11.0)
[2019-12-07 03:50] LABS: ALBUMIN 2.4 g/dL (3.4-5.0); ALKALINE PHOSPHATASE 67 U/L (46-116); ANION GAP < 0 mmol/L (7-16); BUN 23 mg/dL (7-18); CHLORIDE 103 mmol/L (98-107); CO2 43 mmol/L (21-32); CREATININE 0.7 mg/dL (0.6-1.3); GLUCOSE 158 mg/dL (70-99); MAGNESIUM 1.8 mg/dL (1.8-2.4); POTASSIUM 4.3 mmol/L (3.5-5.1); SGOT 42 U/L (15-37); SGPT 117 U/L (30-65); SODIUM 145 mmol/L (136-145); TOTAL BILIRUBIN 0.7 mg/dL (<0.1-1.0); TOTAL PROTEIN 4.8 g/dL (6.4-8.2)
[2019-12-07 06:08] LABS: ABSOLUTE LYMPHOCYTES 0.2 thou/uL (0.8-5.3); ABSOLUTE MONOCYTES 0.1 thou/uL (0.0-1.2); ABSOLUTE NEUTROPHILS 5.3 thou/uL (1.6-8.1)
[2019-12-07 06:09] LABS: PLATELET ESTIMATE ADEQUATE
--- NOTE | 2019-12-07 07:38 | NUR ---
PT STABLE HEMODYNAMICALLY ALL NIGHT. HR 50'S SB WITHOUT ECTOPY. MAP >70 CONSISTENTLY. SMALL STOOL AT SHIFT CHANGED. PERIC CARE AND TURN DONE AT THIS TIME. PT IS ALERT, NONVERBAL BUT NODS APPROPRIATELY TO QUESTIONS. REPORT GIVEN TO PRADEEP BROWN
--- NOTE | 2019-12-07 08:07 | NUR ---
8096 ASSUMED CARE OF PATIENT. PLEASE SEE DOCUMENTED ASSESSMENT
[2019-12-07 09:46] LABS: BE 14.2 mmol/L (-2 to +3); pH 7.446 (7.340-7.450)
[2019-12-07 09:48] LABS: PCO2 59.9 mmHg (35.0-45.0); PO2 153.3 mmHg (75.0-100.0)
--- NOTE | 2019-12-07 15:25 | NUR ---
MANSI PLASENCIA CALLED AND WANTS TO BE ON THE CONTACT LIST FOR THIS PATIENT. SHE STATES SHE IS THE ONLY LIVING RELATIVE. HER PHONE NUMBER IS [phone]. FRIENDS WHO ARE ON CONTACT LIST HAVE SAID THAT MANSI HAS NOT BEEN IN TOUCH WITH PATIENT FOR SOME TIME.
[2019-12-07 16:23] LABS: ANION GAP < 0 mmol/L (7-16); BUN 23 mg/dL (7-18); CALCIUM 7.8 mg/dL (8.5-10.1); CHLORIDE 105 mmol/L (98-107); CO2 40 mmol/L (21-32); CREATININE 0.7 mg/dL (0.6-1.3); GLUCOSE 179 mg/dL (70-99); MAGNESIUM 2.3 mg/dL (1.8-2.4); POTASSIUM 3.4 mmol/L (3.5-5.1); SODIUM 144 mmol/L (136-145)
[2019-12-07 16:49] LABS: SOURCE THORACENTESIS
[2019-12-07 16:53] LABS: SOURCE THORACENTESIS
--- NOTE | 2019-12-07 18:42 | NUR ---
PATIENT MAKING MINIMAL PROGRESS. HAS REMAINED ON AVAPS WITH FIO2 NOW AT 30%. GIVEN ALBUMIN WITH DIURETIC. POTASSIUM REPLACEMENT IN PROGRESS. GIVEN ATIVAN TWICE FOR ANXIETY. PT KNOWS SHE IS ANXIOUS AND WAS TEARFUL AT TIMES. FRIENDS HAVE CALLED. MANSI ALSO CALLED BUT PT HAD NOT PLACED HER ON CONTACT LIST ON ADMISSION. PT ORIENTED TO SELF ONLY. SINUS EMILY WITH RATE IN 40'S MOST OF THE TIME.
[2019-12-08] VITALS (21 sets, daily range): BP systolic 93–137; BP diastolic 39–71
[2019-12-08 04:51] LABS: ABSOLUTE LYMPHOCYTES 0.3 thou/uL (0.8-5.3); ABSOLUTE MONOCYTES 0.2 thou/uL (0.0-1.2); ABSOLUTE NEUTROPHILS 4.3 thou/uL (1.6-8.1); BASOPHILS 0.1 %; HEMATOCRIT 27.6 % (37.0-47.0); HEMOGLOBIN 8.9 gm/dL (12.0-15.0); LYMPHOCYTES 5.5 %; MCH 26.8 pg (26.0-34.0); MCHC 32.4 g/dL (28.0-37.0); MCV 82.7 fL (80.0-100.0); MONOCYTES 3.3 %; MPV 7.8 fl. (7.2-11.1); NUCLEATED RBCS 0 /100WBC; PLATELET COUNT* 135 thou/uL (150-400); POLYS 91.1 %; RBC 3.33 mil/uL (4.20-5.00); RDW-CV 17.5 % (10.5-14.5); WBC 4.8 thou/uL (4.0-11.0)
[2019-12-08 05:01] LABS: ALBUMIN 3.2 g/dL (3.4-5.0); CALCIUM 7.8 mg/dL (8.5-10.1); CREATININE 0.8 mg/dL (0.6-1.3); MAGNESIUM 2.3 mg/dL (1.8-2.4); POTASSIUM 3.6 mmol/L (3.5-5.1); TOTAL BILIRUBIN 0.9 mg/dL (<0.1-1.0); TOTAL PROTEIN 5.1 g/dL (6.4-8.2)
--- NOTE | 2019-12-08 07:42 | NUR ---
ASSUMED CARE OF PATIENT. PLEASE SEE DOCUMENTED ASSESSMENT. PT ISORIENTED TO SELF ONLY
[2019-12-08 08:47] LABS: BE 6.6 mmol/L (-2 to +3); PCO2 44.7 mmHg (35.0-45.0); PO2 116.1 mmHg (75.0-100.0); pH 7.461 (7.340-7.450)
--- NOTE | 2019-12-08 10:26 | NUR ---
1000 PLACED ON 2 LPM NASAL CANNULA. PATIENT RELAXED AT THIS TIME,DENIES ANY PAIN. SHE SEEMS VERY GUARDED AND HOLDS ARMS UP FOLDED OVER HER CHEST.
--- NOTE | 2019-12-08 17:57 | NUR ---
PATIENT PROGRESSING TOWARDS GOALS. OFF OF AVAPS SINCE 1000. O2 SATS UP TO 100% ON 2LPM NASAL CANNULA. OCCASIONAL ANXIETY DEMONSTRATED BY TACHYPNEA. TOLERATED CLEAR LIQUID TRAY BUT DID NEED TO BE FED. SPEECH IS CLEARER,ORIENTED X 2 THIS AFTERNOON. FRIEND AVEL VISITED TODAY AND OTHER FRIEND LYNN AND SHAY HAVE CALLED. PHYSICIANS DID NOT WANT TO ADVANCE TO TELE STATUS YET.
[2019-12-09] VITALS (18 sets, daily range): BP systolic 110–162; BP diastolic 52–79
[2019-12-09 03:49] LABS: ABSOLUTE LYMPHOCYTES 0.3 thou/uL (0.8-5.3); ABSOLUTE MONOCYTES 0.3 thou/uL (0.0-1.2); ABSOLUTE NEUTROPHILS 7.7 thou/uL (1.6-8.1); BASOPHILS 0.2 %; HEMATOCRIT 29.4 % (37.0-47.0); HEMOGLOBIN 9.4 gm/dL (12.0-15.0); LYMPHOCYTES 3.4 %; MCH 27.1 pg (26.0-34.0); MCV 84.6 fL (80.0-100.0); MONOCYTES 3.4 %; MPV 8.4 fl. (7.2-11.1); NUCLEATED RBCS 0 /100WBC; PLATELET COUNT* 145 thou/uL (150-400); RBC 3.48 mil/uL (4.20-5.00); RDW-CV 17.9 % (10.5-14.5); WBC 8.3 thou/uL (4.0-11.0)
[2019-12-09 04:02] LABS: ALBUMIN 2.9 g/dL (3.4-5.0); CALCIUM 7.7 mg/dL (8.5-10.1); CREATININE 0.6 mg/dL (0.6-1.3); POTASSIUM 4.3 mmol/L (3.5-5.1); TOTAL BILIRUBIN 0.7 mg/dL (<0.1-1.0); TOTAL PROTEIN 4.8 g/dL (6.4-8.2)
[2019-12-09 10:47] LABS: BE -0.6 mmol/L (-2 to +3); PCO2 47.4 mmHg (35.0-45.0); PO2 104.3 mmHg (75.0-100.0); pH 7.346 (7.340-7.450)
--- NOTE | 2019-12-09 17:01 | NUR ---
ICU rounds: On bipap with sleep. Continues to be alert but confused. AMOR spoke with Dr Stella Mcdaniels's nurse, at Pt's PCP's office, she informed that Pt was last seen in their office on 08/09/2019, but noted that they do not have a DPOA or AD on file. Per nurse, in 03/2018, Pt reported that she had one, but Pt never brought the form in. CM to attempt to contact Pt's cardiology and shop hand office. CM spoke with Pt's friend, Salena. Salena informed that Pt had asked her to be her DPOA in the past, Salena stated that in order for her to agree to do it, she would want to sit down and speak with Pt regarding her wishes, and that conversation never happened. Salena also informed that Pt was at [facility] last year, CM to contact [facility] to see if they have a DPOA/AD on file. Salena provided CM with Pt's niece's contact info, Naty Erazo [phone], niece states that she has never stated that she does not want to be involved in Pt's POC, niece stated that she and the Pt have been discussing Pt's wishes, so she is more than happy to be involved in making sure that Pt gets what she needs. CM added nibasim to contact list so that she can recieve info regarding Pt, updated ICU nurse. CM spoke with CM Mgr to inform of new info, Mgr to check with legal to see if guardianship still needs to be pursued. CM to continue to assess Pt to see if a DPOA can be completed. Following.
--- NOTE | 2019-12-09 20:00 | NUR ---
RECEIVED REPORT AND ASSUMED CARE OF PT, ASSESSMENT COMPLETED. PT ORIENTED TO PERSON AND PLACE, FORGETFUL. O2 ON AT 2L/NC. TELEMETRY ON SHOWING SR. WILL CONT TO MONITOR AND ASSIST NEEDED.
[2019-12-10] VITALS: BP 152/80
[2019-12-10 02:06] LABS: BODY FLUID PH 7.6 (Not Estab.)
[2019-12-10 04:00] VITALS: BP 112/60
--- NOTE | 2019-12-10 06:04 | NUR ---
AWAKE FREQ, AGITATED AND PULLING AT BIPAP. SITTER AT BEDSIDE SHORT PERIODS WHEN AWAKE BUT IS ABLE TO NAP. REMOVED AT 0400 BY RT AND NC RESUMED. LASIX GIVEN ORDERED WITH LG AMT EXPELLED PER FREEMAN. NO CHANGE IN ASSESSMENT. TELEMETRY CONT TO SHOW SR. HS GOALS OF REST AND SAFETY ACHIEVED. HOURLY ROUNDING OBSERVED.
[2019-12-10 07:40] VITALS: BP 117/82
--- NOTE | 2019-12-10 09:24 | NUR ---
CM requested that Pre Cert update Pt's facesheet, noting Pt's niece, Naty, as her person to contact and next of kin. CM contacted Dr Burns's office [phone], Pt's certified diabetes educator, they saw Pt on 11/[address] through visit and noted that Pt seemed confused and "off", but was able to identify her nurse. Pt does not have a DPOA/AD on file with their office. CM contacted Pt's calendar control clerk blood bank office, Dr Sloan [phone], they noted that Pt has not been in their office since 07/03/18 and informed that they do not have a DPOA/AD on file at their office. Staff to continue to contact Pt's niece, Naty, regarding any healthcare needs or questions [phone].
[2019-12-10 11:20] LABS: HEMATOCRIT 34.6 % (37.0-47.0); HEMOGLOBIN 10.8 gm/dL (12.0-15.0); MCH 26.1 pg (26.0-34.0); MCHC 31.3 g/dL (28.0-37.0); MCV 83.4 fL (80.0-100.0); MPV 8.2 fl. (7.2-11.1); NUCLEATED RBCS 0 /100WBC; PLATELET COUNT* 173 thou/uL (150-400); RBC 4.15 mil/uL (4.20-5.00); RDW-CV 17.7 % (10.5-14.5); WBC 11.2 thou/uL (4.0-11.0)
[2019-12-10 11:24] LABS: CALCIUM 7.7 mg/dL (8.5-10.1); MAGNESIUM 1.8 mg/dL (1.8-2.4); POTASSIUM 3.5 mmol/L (3.5-5.1)
[2019-12-10 11:48] LABS: ABSOLUTE LYMPHOCYTES 0.3 thou/uL (0.8-5.3); ABSOLUTE MONOCYTES 0.1 thou/uL (0.0-1.2); ABSOLUTE NEUTROPHILS 10.8 thou/uL (1.6-8.1); HYPOCHROMASIA 1+; PLATELET ESTIMATE ADEQUATE
[2019-12-10 11:49] LABS: ANISOCYTOSIS 1+; POIKILOCYTOSIS 1+
[2019-12-10 12:06] LABS: BODY FLUID LDH 129 IU/L (()); BODY FLUID PROTEIN 1.1 g/dL (())
[2019-12-10 12:09] VITALS: BP 135/66
--- NOTE | 2019-12-10 13:07 | PATH ---
[address] [address] PATHOLOGY RPT PROCEDURE Name: FARIDA VITALE Room: [address] IN [facility]#: [id number] Admission: 11/29/19 Date of : 46 Discharge: Report #: [id number] Path Case #: [id number] Note LCA Accession Number: [id number] TESTS RESULT FLAG UNITS REF RANGE LAB Clinician Provided Cytology Information No. of containers..01 Other (Miscellaneous) Source: RIGHT PLEURAL FLUID DIAGNOSIS: 02 RIGHT PLEURAL FLUID NEGATIVE FOR MALIGNANCY. REACTIVE MESOTHELIAL CELLS AND FEW INFLAMMATORY CELLS. THIS INTERPRETATION INCLUDES EVALUATION OF A CELL BLOCK. Signed out by: 02 Michael De Paz MD, Pathologist NPI- [id number] Performed by: 01 Ayleen Lemus, Racing Manager ([facility]) Gross description: 01 40ML, HAZY YELLOW, 1 TP 1 CB /LCS 12/09/2019 1239 Local FLAG LEGEND: L-Low Normal,H-High Normal,LL-Alert Low,HH-Alert High <-Panic Low,>-Panic High,A-Abnormal,AA-Critical Abnormal Performed at: 01 [facility] [address] [place] [address] Saurabh Martinez MD, [address] [address] Michael De Paz MD, Specimen Comment: A courtesy copy of this report has been sent to [phone] Specimen Comment: Report sent to Performed at: 01 [facility] [address], [place], [place] [id number] MD Saurabh Martinez MD Phone: [phone]
--- NOTE | 2019-12-10 16:05 | NUR ---
PATIENT TURNED Q2. CONTINUES TRACING SR ON RN CARDIOVASCULAR. FREEMAN DRAINING DARK YELLOW URINE. INSULIN WITH MEALS WHEN REQUIRED. PATIENT CONFUSED THIS AFTERNOON, WAS ALERT AND ORIENTED X 3 FOR SHORT PERIOD THIS AM. MULT SCHED IV ABX INFUSED ORDERED. CM WORKING ON PATIENT DPOA FOR PLACEMENT. POTASSIUM AND MAGNESIUM REPLACED PER DR. MCKEE'S ORDERS. CXR SHOWED NO CHANGED.
[2019-12-10 16:33] VITALS: BP 113/66
--- NOTE | 2019-12-10 17:48 | NUR ---
KYRA called pt efrem Alfonso [phone] to follow up and discuss extent of pt niece involvement and if Naty would be willing and able to be appointed as guardian, she was willing and agreed to being able to be appointed guardian of healthcare decisions but did not want to be finacially responsible. 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 Pt niece plans to speak with pt neighbor/friend Virgilio and pt niece said she would make a trip here to assist with handling any possible needs when timing was appropriate. Pt efrem lives in [facility] and is also considering that she could move her aunt to [place] to be closer to her. KYRA to continue to follow to assist with safe dc planning.
[2019-12-10 20:30] VITALS: BP 134/60
[2019-12-11 00:05] VITALS: BP 139/80
[2019-12-11 04:00] VITALS: BP 116/61
--- NOTE | 2019-12-11 05:35 | NUR ---
VITALS STABLE, AFEBRILE. PT OREINTED TO PLACE AND PRESIDENT. NOT ORIENTED TO TIME, SITUATION. CONFUSED AT TIMES, ASKS WHEN THE REPAIRMAN IS GOING TO COME AND WHY HE DOESN'T GIVE HER ATTENTION ANYMORE. REORIENTED NEEDED. EASILY REORIENTABLE, PLEASANT. ABLE TO KEEP BIPAP ON THROUGH THE NIGHT WITH SOME SUPERVISION. OTHERWISE UNEVENTFUL NIGHT. Q2 TURNS FOR SKIN INTEGRITY. CALL LIGHT WITHIN REACH. BED ALARM ON. WILL CONTINUE MONITORING.
[2019-12-11 06:03] LABS: CALCIUM 7.5 mg/dL (8.5-10.1); CREATININE 0.7 mg/dL (0.6-1.3); POTASSIUM 3.7 mmol/L (3.5-5.1)
[2019-12-11 08:00] VITALS: BP 99/72
--- NOTE | 2019-12-11 09:08 | NUR ---
RECIEVED REPORT AROUND 0710. ASSUMED CARE. PT LETHARGIC AND ORIENTED X2. ATTACHED TO HEART MONITOR WITH SB AND PAC. FREEMAN INTACT. PT LYING IN BED. IS ON BEDREST. CALL LIGHT AND BEDSIDE TABLE WITH IN REACH. WILL CONTINUE TO MONITOR.
[2019-12-11 12:30] VITALS: BP 115/68
[2019-12-11 16:00] VITALS: BP 109/57
--- NOTE | 2019-12-11 16:51 | NUR ---
Pt remains with confusion, bipap at night, CT this morning, Dr Bridges said that there is question whether or not another thoracentesis is needed. Guardianship process underway, SW to continue to follow to assist with safe dc planning.
--- NOTE | 2019-12-11 18:05 | NUR ---
PT DID BECOME MORE ALERT DURING THE DAY, BUT STILL LETHARGIC MOST OF THE SHIFT. PT IS REFUSING TO EAT. WILL ONLY TAKE A COUPLE BITES. VS CHARTED. MEDICATION PER MAR. FRIEND LYNN CALLED FOR UPDATE ON PT. UPDATE WAS GIVEN. HEART MONITOR ATTACHED TO PATIENT. CALL LIGHT WITH IN REACH.
[2019-12-11 21:00] VITALS: BP 143/68
[2019-12-12 04:00] VITALS: BP 113/60
[2019-12-12 05:20] LABS: ALBUMIN 2.6 g/dL (3.4-5.0); CALCIUM 7.7 mg/dL (8.5-10.1); CREATININE 0.6 mg/dL (0.6-1.3); MAGNESIUM 1.8 mg/dL (1.8-2.4); POTASSIUM 3.6 mmol/L (3.5-5.1); TOTAL BILIRUBIN 0.7 mg/dL (<0.1-1.0); TOTAL PROTEIN 4.3 g/dL (6.4-8.2)
[2019-12-12 05:54] LABS: ABSOLUTE LYMPHOCYTES 0.6 thou/uL (0.8-5.3); ABSOLUTE MONOCYTES 0.4 thou/uL (0.0-1.2); ABSOLUTE NEUTROPHILS 7.8 thou/uL (1.6-8.1); BASOPHILS 0.2 %; HEMATOCRIT 30.1 % (37.0-47.0); HEMOGLOBIN 9.6 gm/dL (12.0-15.0); LYMPHOCYTES 7.1 %; MCH 26.7 pg (26.0-34.0); MCV 83.6 fL (80.0-100.0); MONOCYTES 4.5 %; MPV 8.5 fl. (7.2-11.1); NUCLEATED RBCS 0 /100WBC; PLATELET COUNT* 138 thou/uL (150-400); POLYS 88.2 %; RDW-CV 17.9 % (10.5-14.5); WBC 8.9 thou/uL (4.0-11.0)
--- NOTE | 2019-12-12 06:27 | NUR ---
NO ACUTE CHANGES THROUGHOUT SHIFT. PT REFUSED TO WEAR BIPAP, 2L NC WAS CONTINUED THROUGHOUT THE NIGHT. ALL ROUNDINGS COMPLETED, ALL NEEDS MET, FULL ASSESSMENT COMPLETED CHARTED.
[2019-12-12 08:00] VITALS: BP 104/47
[2019-12-12 12:57] VITALS: BP 111/55
[2019-12-12 15:28] LABS: BF RBC 306745 /mm3; TOTAL CELL COUNT 353 /mm3
[2019-12-12 15:36] LABS: BF LYMPHOCYTES 12 %; BF MONOCYTES 1 %; BF POLYS 87 %
[2019-12-12 15:37] LABS: TOTAL VOLUME 100 ml
[2019-12-12 15:38] LABS: CLARITY CLOUDY
[2019-12-12 15:39] LABS: BF OTHER CYTO TO FOLLOW; SOURCE PLEURAL FLUID
--- NOTE | 2019-12-12 19:00 | NUR ---
ASSUMED PT CARE AT 0730. ASSESSMENT COMPLETED CHARTED. UNABLE TO MAKE NEEDS KNOWN AND NEEDS HELP EATING. RESTING IN BED MOST OF THE DAY. NO C/O PAIN OR DISCOMFORT. PT HAD CHEST TUBE PLACED TODAY. HAS NOT PULLED AT FREEMAN OR DRAIN AT THIS TIME. SITTER IN PLACE DURING SHIFT CHANGE. WILL CONTINUE TO MONITOR.
[2019-12-12 20:00] VITALS: BP 124/61
[2019-12-13] VITALS: BP 110/49
[2019-12-13 04:00] VITALS: BP 112/51
[2019-12-13 04:40] LABS: ABSOLUTE LYMPHOCYTES 0.4 thou/uL (0.8-5.3); ABSOLUTE MONOCYTES 0.2 thou/uL (0.0-1.2); ABSOLUTE NEUTROPHILS 8.8 thou/uL (1.6-8.1); BASOPHILS 0.2 %; HEMATOCRIT 32.6 % (37.0-47.0); HEMOGLOBIN 10.6 gm/dL (12.0-15.0); LYMPHOCYTES 4.4 %; MCH 26.9 pg (26.0-34.0); MCHC 32.5 g/dL (28.0-37.0); MCV 82.7 fL (80.0-100.0); MONOCYTES 1.9 %; NUCLEATED RBCS 0 /100WBC; PLATELET COUNT* 138 thou/uL (150-400); POLYS 93.5 %; RBC 3.94 mil/uL (4.20-5.00); RDW-CV 18.4 % (10.5-14.5); WBC 9.4 thou/uL (4.0-11.0)
[2019-12-13 04:54] LABS: CREATININE 0.4 mg/dL (0.6-1.3); MAGNESIUM 1.9 mg/dL (1.8-2.4); POTASSIUM 3.8 mmol/L (3.5-5.1)
--- NOTE | 2019-12-13 06:44 | NUR ---
ASSUMED CARE OF PT AFTER REPORT AT 1930. PT A&OX1. ONLY ORIENTED TO SELF. VSS. PHYSICAL ASSESSMENT COMPLETED AND CHARTED. PT ON O2 AT 2L NC/BIPAP AT HS. PT REFUSED BIPAP-ANXIOUS WITH BIPAP ON- THIS NURSE & SITTER REDIRECT PT AND MED GIVEN .PT ABLE TO WEAR BIPAP FOR 7HRS. PT WITH FREEMAN TO DEPENDENT DRAIN. PT WITH LEFT PIGTAIL TO SUCTION. BLOODY OUTPUT NOTED. FALL PRECAUTIONS IN PLACE. CALL LIGHT WITHIN REACH.
[2019-12-13 08:00] VITALS: BP 158/68
[2019-12-13 12:00] VITALS: BP 121/54
--- NOTE | 2019-12-13 15:32 | NUR ---
CM SPOKE TO THE PT TO ASSESS COGNITION, AND ABILITY AND WILLINGNESS TO COMPLETE DPOA PAPERWORK. PT ABLE TO INDEPENDENTLY STATE HER FIRST AND LAST NAME, BIRTHDAY MONTH AND YEAR, AND IDENIFY NIECES NAME ON COMMAND. CM INFORMED PT OF THE NEED TO COMPLETE DPOA PAPERWORK, ITS SIGNIFICANCE AND PURPOSE. PT CONFIRMS UNDERSTANDING AND NAMES HER NIECE LAN THE PERSON WHO SHE WOULD LIKE TO BE HER DPOA. CM ASSISTED THE PT IN COMPLETING DPOA PAPERWORK AND NOTARIZED THE FORM. ORIGINAL AND COPY PLACED ON THE CHART. CM SPOKE TO THE PT'S NIECE LAN TO INFORM OF THE PT'S CURRENT MENTATION, ABILITY TO COMPLETE DPOA PAPERWORK. PT'S NIECE IN AGREEMENT WITH THE PLAN TO BE PT'S DPOA AND REQUEST A COPY OF THE FORM. CM TO ASSIST IN GETTING COPY OF DPOA TO THE PT'S NIECE. CM WILL REMAIN AVAILABLE TO ASSIST AND FOLLOW NEEDED.
[2019-12-13 16:00] VITALS: BP 142/73
[2019-12-13 16:06] LABS: BODY FLUID LDH 1184 IU/L (()); BODY FLUID PROTEIN 1.7 g/dL (())
[2019-12-13 20:00] VITALS: BP 114/62
[2019-12-14] VITALS: BP 108/60
[2019-12-14 04:00] VITALS: BP 127/68
[2019-12-14 04:58] LABS: ABSOLUTE LYMPHOCYTES 0.7 thou/uL (0.8-5.3); ABSOLUTE MONOCYTES 0.4 thou/uL (0.0-1.2); ABSOLUTE NEUTROPHILS 6.6 thou/uL (1.6-8.1); BASOPHILS 0.1 %; EOSINOPHILS 0.3 %; HEMATOCRIT 31.2 % (37.0-47.0); HEMOGLOBIN 10.2 gm/dL (12.0-15.0); LYMPHOCYTES 8.8 %; MCH 26.9 pg (26.0-34.0); MCHC 32.7 g/dL (28.0-37.0); MCV 82.2 fL (80.0-100.0); MONOCYTES 5.2 %; MPV 8.1 fl. (7.2-11.1); NUCLEATED RBCS 0 /100WBC; PLATELET COUNT* 112 thou/uL (150-400); POLYS 85.6 %; RDW-CV 18.4 % (10.5-14.5); WBC 7.7 thou/uL (4.0-11.0)
[2019-12-14 06:05] LABS: ALBUMIN 2.6 g/dL (3.4-5.0); CALCIUM 7.8 mg/dL (8.5-10.1); CREATININE 0.4 mg/dL (0.6-1.3); MAGNESIUM 1.7 mg/dL (1.8-2.4); POTASSIUM 3.3 mmol/L (3.5-5.1); TOTAL BILIRUBIN 0.7 mg/dL (<0.1-1.0); TOTAL PROTEIN 4.2 g/dL (6.4-8.2)
--- NOTE | 2019-12-14 06:53 | NUR ---
ASSUMED PATIENT CARE AT 1900. PATIENT ALERT TO SELF, COOPERATIVE. SITTER IN PLACE. CHEST TUBE DRAINING WELL. FREEMAN PATENT. NO COMPLAINTS OF PAIN OR DISCOMFORT NOTED. EMBEDDED SOFTWARE DESIGN ENGINEER AND HOURLY ROUNDING COMPLETED CHARTED
[2019-12-14 07:45] VITALS: BP 131/59
--- NOTE | 2019-12-14 07:45 | NUR ---
ASSUMED PT. CARE AND RECEIVED REPORT AT 0730. PT. ALERT/ORIENTED TO SELF AND ABLE TO STATE SHE IS IN [place]. ON 2L NC. DENIES CURRENT PAIN/SOB. FULL ASSESSMENT COMPLETED, REFER TO CHARTING. PT. DOES HAVE PURPLISH DISCOLORATION TO PALMS OF FEET/HEELS, BLANCHABLE IN NATURE. PETE NOTED TO DD WITH CLEAR/YELLOW OUTPUT. CALL LIGHT IN REACH, WILL CONTINUE WITH PLAN OF CARE.
[2019-12-14 12:00] VITALS: BP 131/73
[2019-12-14 16:00] VITALS: BP 119/68
[2019-12-14 20:00] VITALS: BP 127/66
[2019-12-15] VITALS: BP 110/62
[2019-12-15 03:58] VITALS: BP 109/64
[2019-12-15 05:16] LABS: CALCIUM 7.5 mg/dL (8.5-10.1); CREATININE 0.5 mg/dL (0.6-1.3)
[2019-12-15 05:17] LABS: POTASSIUM 2.7 mmol/L (3.5-5.1)
--- NOTE | 2019-12-15 05:42 | NUR ---
VITALS STABLE, AFEBRILE. PT ORIENTED ONLY TO , STATE AND PRESIDENT. EASILY REORIENTABLE, PLEASANT. SLEPT THROUGH THE NIGHT. ABLE TO KEEP BIPAP ON FOR A FEW HOURS. ON 1L NC WITH SPO2 98-100%. SPO2 MAINTAINING EVEN WHEN PATIENT HAS NC OFF HER NOSTRILS. NO BM, NO OUTPUT FROM CHEST TUBE. CHEST TUBE DRESSING INTACT. PT DENIES PAIN. OTHERWISE UNEVENTFUL NIGHT. K+ REPLACEMENT STARTED PER PROTOCOL. WILL CONTINUE MONITORING.
[2019-12-15 08:00] VITALS: BP 133/62
[2019-12-15 12:49] VITALS: BP 119/51
[2019-12-15 16:06] LABS: BODY FLUID PH 7.8 (Not Estab.)
[2019-12-15 16:23] LABS: SOURCE PLEURAL
[2019-12-15 16:24] LABS: SOURCE PLEURAL
[2019-12-15 16:25] VITALS: BP 123/63
--- NOTE | 2019-12-15 19:41 | NUR ---
PT. LETHARGIC, UNABLE TO ASSESS ORIENTATION, ASSISTED WITH MEALS, DENIES PAIN, VSS. CHEST TUBE AND FREEMAN CATHETER PATENT, IN PLACE, WITH NO COMPLICATIONS. PT. VISITED BY FRIEND, PT APPEARED HAPPY TO SEE HER. CALL LIGHT AND PERSONAL BELONGINGS PLACED WITHIN REACH. PT. IN BED, WATCHING TV, IN NO APPARENT DISTRESS, AT SHIFT CHANGE.
[2019-12-15 20:00] VITALS: BP 112/65
[2019-12-16] VITALS: BP 108/56
[2019-12-16 04:00] VITALS: BP 96/53
--- NOTE | 2019-12-16 05:49 | NUR ---
ASSUMED PATIENT CARE AT 1900. PATIENT ALERT TIMES 2. CONFUSED. CHEST TUBE IN PLACE AND PATENT. FREEMAN PATENT. TRAVEL INSURANCE AGENT AND HOURLY ROUNDING COMPLETED DOCUMENTED.
[2019-12-16 06:59] LABS: CALCIUM 7.7 mg/dL (8.5-10.1); CREATININE 0.6 mg/dL (0.6-1.3); POTASSIUM 3.5 mmol/L (3.5-5.1)
[2019-12-16 08:00] VITALS: BP 103/58
[2019-12-16 12:38] VITALS: BP 113/65
[2019-12-16 15:58] LABS: HEMATOCRIT 36.8 % (37.0-47.0); HEMOGLOBIN 11.9 gm/dL (12.0-15.0); MCH 26.4 pg (26.0-34.0); MCHC 32.4 g/dL (28.0-37.0); MCV 81.5 fL (80.0-100.0); MPV 8.3 fl. (7.2-11.1); NUCLEATED RBCS 0 /100WBC; PLATELET COUNT* 125 thou/uL (150-400); RBC 4.52 mil/uL (4.20-5.00); RDW-CV 19.3 % (10.5-14.5); WBC 10.2 thou/uL (4.0-11.0)
[2019-12-16 16:47] VITALS: BP 118/69
[2019-12-16 16:52] LABS: ABSOLUTE LYMPHOCYTES 0.4 thou/uL (0.8-5.3); ABSOLUTE NEUTROPHILS 9.8 thou/uL (1.6-8.1)
[2019-12-16 16:53] LABS: ANISOCYTOSIS 1+; PLATELET ESTIMATE DECREASED
[2019-12-16 19:40] VITALS: BP 112/68
--- NOTE | 2019-12-16 19:57 | NUR ---
VS CHARTED, SR ON TELE, ROOM AIR DAY- BIPAP AT NIGHT WHEN TOLERATED, CHEST TUBE LEFT SIDE- SEROSANGUINEOUS OUTPUT, ACCUCHECK, ORIENTED TO SELF AND PLACE, MAX ASSIST PIVOT TO CHAIR, FREEMAN, HOURLY ROUNDING PERFORMED, POSSESSIONS AND CALL LIGHT WITHIN REACH
[2019-12-17] VITALS: BP 101/61
[2019-12-17 04:22] VITALS: BP 97/56
[2019-12-17 06:00] LABS: ABSOLUTE MONOCYTES 0.4 thou/uL (0.0-1.2); ABSOLUTE NEUTROPHILS 6.4 thou/uL (1.6-8.1); BASOPHILS 0.2 %; EOSINOPHILS 0.1 %; HEMATOCRIT 32.2 % (37.0-47.0); HEMOGLOBIN 10.5 gm/dL (12.0-15.0); LYMPHOCYTES 12.7 %; MCH 26.6 pg (26.0-34.0); MCHC 32.5 g/dL (28.0-37.0); MCV 81.9 fL (80.0-100.0); MONOCYTES 4.9 %; MPV 8.6 fl. (7.2-11.1); NUCLEATED RBCS 0 /100WBC; PLATELET COUNT* 107 thou/uL (150-400); POLYS 82.1 %; RBC 3.93 mil/uL (4.20-5.00); RDW-CV 19.8 % (10.5-14.5); WBC 7.9 thou/uL (4.0-11.0)
[2019-12-17 06:21] LABS: ALBUMIN 2.9 g/dL (3.4-5.0); CALCIUM 7.6 mg/dL (8.5-10.1); CREATININE 0.7 mg/dL (0.6-1.3); MAGNESIUM 1.7 mg/dL (1.8-2.4); TOTAL BILIRUBIN 0.6 mg/dL (<0.1-1.0); TOTAL PROTEIN 4.9 g/dL (6.4-8.2)
[2019-12-17 06:30] LABS: POTASSIUM 2.9 mmol/L (3.5-5.1)
--- NOTE | 2019-12-17 07:10 | NUR ---
CHANGE OF SHIFT BEDSIDE REPORT GIVEN PATIENT SEEN AT BEDSIDE, IN BED ASLEEP BIPAP ON ASSUMED PATIENT CARE
--- NOTE | 2019-12-17 07:20 | NUR ---
PT ALERT AND ORIENTED X2. VSS ON RA. BIPAP @ NIGHT. PT NONCOMPLIANT WITH BIPAP. CONSTANTLY TAKING IT OFF. NO SITTER AVAILBE. MITTENS TO BILAT HANDS TO PREVENT PT FROM PULLING OUT BIPAP. PT STILL ABLE TO PULL OF BIPAP WITH MITTENS IN PLACE. ATIVAN GIVEN PRN. PT INCONTINENT OF BOWEL. FREEMAN IN PLACE. CHEST TUBE PUT OUT 50ML. FALL PRECAUTION IN PLACE. CALL LIGHT WITHIN REACH. HOURLY ROUNDINGS MADE. WILL CONTINUE TO MONITOR.
[2019-12-17 08:00] VITALS: BP 103/70
--- NOTE | 2019-12-17 08:12 | NUR ---
PT ORIENTED TO PERSON AND PLACE. CONFUSED. VISUAL HALLUCINAITON. VSS ON RA. BIPAP @ HS. PT NONCOMPLAINT WITH BIPAP. NO SITTER AVAILABLE PER H/S. H/S PROVIDED MITTENS. MITTENS TO BILAT HANDS. PT STILL ABLE TO UNPLUG BIPAP WITH MITTENS IN PLACE. PT ALSO ABLE TO REMOVE MITTENS. ATIVAN GIVEN PRN. CHEST CT COMPLETED THIS AM. CHEST TUBE TO L/FLANK, MARKED @ 700ML THIS AM. FREEMAN IN PLACE. BM NOTED THIS SHIFT. FALL PRECAUTION IN PLACE. WILL CONTINUE TO MONITOR.
--- NOTE | 2019-12-17 08:31 | CON ---
[address] [address] CONSULTATION Name: FARIDA VITALE Room: [address] IN .R.#: [id number] Admission: 11/29/19 Attend Phys: Mila Ba Discharge: Date of : 46 Report #: [id number] THIS REPORT FOR: //name// cc: Krystian Francois MD, Ammon L. MD ~ THIS REPORT FOR: //name// CC: Krystian Cornejo DATE OF SERVICE: 12/01/2019 REQUESTING PHYSICIAN: Dr. Cornejo. REASON FOR CONSULTATION: Pleural effusion. HISTORY OF PRESENT ILLNESS: The patient is a 68-year-old woman who was admitted to the hospital with altered mental status. The patient's neighbor states that police came to her house for wellness check and found her not well, so the patient was brought to the Emergency Room. Previously, the patient has been well. She lives alone independently, although neighbor has been concerned about her condition lately. Apparently, the patient has not been feeling well. She had been reporting some cough and shortness of breath. In the Emergency Room, the patient had x-ray done, which showed large left pleural effusion and collapse of left lung. She had also some infiltrates throughout the right lung. She had thoracentesis done; 2.82 liters of fluid was removed. Oncology consult is requested. The patient is very confused. She is not oriented to time and place. She cannot give me any history. PAST MEDICAL HISTORY: According to chart review is positive for history of melanoma and rheumatoid arthritis. SOCIAL HISTORY: Unable to obtain. PHYSICAL EXAMINATION: GENERAL: Reveals a well-developed woman, confused, not able to give me any history, not agitated. VITAL SIGNS: Blood pressure 126/71, heart rate is 99, temperature 97.2, and respirations 24. HEAD AND NECK: Neck is supple. There is no icterus. LUNGS: Decreased breath sounds on the left. ABDOMEN: Soft. No organomegaly. There is no supraclavicular lymphadenopathy. SKIN: Does not reveal any rash. LABORATORY DATA: White count 11.6, hemoglobin 12.1, platelets 331. Sodium 145, potassium 3.4, BUN 29, creatinine 0.8, [place]icar[place] 39[place] [address] CONSULTATION Name: FARIDA VITALE Room: [address]#: [id number] Admission: 11/29/19 Attend Phys: Mila Ba Discharge: Date of : 46 Report #: [id number] IMAGING STUDIES: Chest x-ray shows improvement in aeration of the left lung, resolution of the shift to the right, persistent ____ left lung infiltration, possible mass. Head CT negative. CT of chest done yesterday shows large left pleural effusion, coarse patchy infiltrates on the right side consistent with pneumonitis. ASSESSMENT AND PLAN: Pleural effusion, bloody. 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 Recommend to send her fluids for cytology. Repeat CT of the chest after thoracentesis. She is scheduled to have repeat thoracentesis today. We will follow the patient with you. Thank you very much for the consultation. <ELECTRONICALLY SIGNED> By: Komal Sifuentes MD 12/17/19 0831 [id number] Sifuentes MD /nt
--- NOTE | 2019-12-17 12:21 | NUR ---
CM INFORMED BY THE PHYSICIAN OF THE NEED TO INITIATE TRANSFER FOR THE PT. REASON: TRAPPED LUNG, CARDIOTHORASIC SURGERY (SERVICES NOT AVAILABLE AT OUR FACILITY). BED NEEDED: TELEMENTRY. PHYSICIAN REQUESTING TRANSFER: DR. MCKEE, AND HOSPITALIST TO BE THE POINT OF CONTACT FOR TRANSFER. FACILIY: #1 [facility] OR #2 [facility]. CM SPOKE TO THE PT'S DPOA (LAN) TO INFORM OF THE PT'S CURRENT STATUS AND OF THE NEED TO INITIATE TRANFER OF THE PT FOR POSSIBLE CARDIOTHORASIC SURGERY AND TRAPPED LUNG. LAN IN AGREEMENT WITH THE PLAN TO TRANSFER THE PT AND INFORMS THAT SHE HAS MADE PLANS TO TRAVEL TO [facility] TO SEE THE PT. CM TO F/U WITH LAN WHEN TRANSFER IS FULLY ARRANGED. CM SPOKE TO ROXANNE WITH [facility] TRANSFER TEAM TO ININTIATE TRANSFER. HOWEVER ROXANNE INFORMS THAT [facility] CURRENTLY DOES NOT HAVE ANY BEDS AVAIABLE. CM SPOKE TO JULIET WITH [facility] TRANSFER TEAM TO INITIATE TRANSFER. JULIET REQUEST FACESHEET, CLINICAL INFO, AND COVID-19 RAPID TEST BE COMPLETED AND FAXED. CM FAXED ALL REQUESTED INFO AND INFORMED THE RN AND PHYSICIAN OF THE NEED TO OBTAIN RAPID COVID TESTING. CM AWAITING LAB RESULTS AND A RETURN CALL FROM THE [facility] TRANSFER TEAM TO DISCUSS ABILITY TO ACCEPT THE PT. CM WILL REMAIN AVAILABLE TO ASSIST AND FOLLOW NEEDED. [facility] TRANSFER TEAM PHONE: [phone] FAX: [phone] LAN (DPOA/NIECE) PHONE: [phone]
[2019-12-17 12:38] VITALS: BP 126/62
--- NOTE | 2019-12-17 13:08 | PATH ---
[address] [address] PATHOLOGY RPT PROCEDURE Name: FARIDA VITALE Room: [address] IN [facility]#: [id number] Admission: 11/29/19 Date of : 46 Discharge: Report #: [id number] Path Case #: [id number] Note [facility] Accession Number: [id number] TESTS RESULT FLAG UNITS REF RANGE LAB Clinician Provided Cytology Information No. of containers..01 Other (Miscellaneous) Source: PLEURAL DIAGNOSIS: 02 PLEURAL, SIDE NOT SPECIFIED: INADEQUATE, CONSISTING ONLY OF BLOOD. THIS INTERPRETATION INCLUDES EVALUATION OF A CELL BLOCK. Signed out by: 02 Michael De Paz MD, Pathologist NPI- [id number] Performed by: 01 Daxa Chand, [employer] ([facility]) Gross description: 01 20 ML, CLDY AYAN, 1 TP 1 CB /LCS 12/13/2019 0819 Local FLAG LEGEND: L-Low Normal,H-High Normal,LL-Alert Low,HH-Alert High <-Panic Low,>-Panic High,A-Abnormal,AA-Critical Abnormal Performed at: [address] [place] [address] Saurabh Martinez MD, [address], [place] [address] Michael De Paz MD, Specimen Comment: A duplicate report has been generated due to demographic updates. Performed at: [address], [place], [place] [id number] MD Saurabh Martinez MD Phone: [phone]
[2019-12-17 19:08] VITALS: BP 128/57
[2019-12-17 20:00] VITALS: BP 120/72
[2019-12-18] VITALS: BP 111/60
--- NOTE | 2019-12-18 03:23 | NUR ---
PT ALERT ORIENTED. ON BED REST. TURN Q 2 HOURS. TELEMETRY SHOWS SB. L CT TO -2O CM SXN SM AMT OF SS. GOOD TIDALING. PT ON RA. ATTEMPTED TO WEAR BIPAP. RR IN THE 30S ATIVAN GIVEN. RR INCREASED TO 40S. BP REMOVED. PT CALMER. FREEMAN WITH YELLOW. R PIC SINGLE LUMEN. WCTM
[2019-12-18 04:00] VITALS: BP 100/45
[2019-12-18 08:00] VITALS: BP 104/70
--- NOTE | 2019-12-18 08:05 | NUR ---
ASSUMED CARE OF PATIENT THIS MORNING FROM NIGHT NURSE. PT IS DOING WELL WITH NO CO OF PAIN OR NAUSEA. SHE IS DOIGN BETTER AND ANSWERIGN QUESTIONS. SHE WAS EDUCATED ON POC, DISEASE PROCESS AND USING THE CALL LIGHT FOR ASSISTANCE. WILL CONTINUE TO MONITOR.
--- NOTE | 2019-12-18 10:11 | NUR ---
CM CONTINUING TO ATTEMPT TO TRANSFER PT TO ANOTHER FACILITY. REASON: TRAPPED LUNG. REQUESTING PHYSICIAN: DR PATEL. CM SPOKE TO [facility] TRANSFER TEAM AND [facility] TRANSFER TEAM TO DISCUSS BED AVAILABILITY AND ABILITY TO ACCEPT THIS PT. BOTH FACILITIES INFORM THAT THEY CURRENTLY HAVE 'NO BEDS AVAILABLE, AND TO CHECK BACK AFTER NOON TODAY'. CM INFORMED THE PHYSICIAN OF THIS AND HE CONFIRMS OF THE NEED TO ATTEMPT PLACEMENT AT OTHER FACILITIES. CM SPOKE TO [facility] TRANSFER TEAM TO INITIATE THE TRANSFER AND FAXED PT'S FACESHEET AND INSURANCE INFO. CM AWAITING A RETURN CALL FROM [facility] TRANSFER TEAM TO DISCUSS ABILITY TO ACCEPT PT. CM WILL REMAIN AVAILABLE TO ASSIST AND FOLLOW. [facility] TRANSFER TEAM PHONE: [phone] FAX: [phone]
[2019-12-18 11:30] VITALS: BP 123/71
--- NOTE | 2019-12-18 15:57 | NUR ---
REPORT WAS CALLED TO OLIVERIO AT [facility] [place].
== END 2019-12-18 16:00 | disposition short-term general hospital (02) | DRG 871 ==
LOC: M.ERS 12:27 → M.TBA-ER 13:45 → M.2W 13:45 → M.ICU 12-06 11:08 → M.TBA-ER 12-09 18:10 → M.ICU 12-09 18:24 → M.2W 12-09 19:02
PROVIDERS: Emergency Medicine Emergency Medical Services; Internal Medicine; Internal Medicine Critical Care Medicine; Internal Medicine Hematology & Oncology; Pediatrics; ADMIT Internal Medicine; ATTEND Internal Medicine
PROC: 0W9B30Z Drainage of Left Pleural Cavity with Drainage Device, Percutaneous Approach (ICD-10-PCS; principal; 2019-11-30)
PROC: 0W9B30Z Drainage of Left Pleural Cavity with Drainage Device, Percutaneous Approach (ICD-10-PCS; 2019-12-02)
PROC: 5A09357 Assistance with Respiratory Ventilation, Less than 24 Consecutive Hours, Continuous Positive Airway Pressure (ICD-10-PCS; 2019-12-04)
PROC: B548ZZA Ultrasonography of Superior Vena Cava, Guidance (ICD-10-PCS; 2019-12-05)
PROC: 02HV33Z Insertion of Infusion Device into Superior Vena Cava, Percutaneous Approach (ICD-10-PCS; 2019-12-05)
PROC: 5A09357 Assistance with Respiratory Ventilation, Less than 24 Consecutive Hours, Continuous Positive Airway Pressure (ICD-10-PCS; 2019-12-05)
PROC: 0W993ZZ Drainage of Right Pleural Cavity, Percutaneous Approach (ICD-10-PCS; 2019-12-06)
PROC: 5A09357 Assistance with Respiratory Ventilation, Less than 24 Consecutive Hours, Continuous Positive Airway Pressure (ICD-10-PCS; 2019-12-06)
PROC: 5A09357 Assistance with Respiratory Ventilation, Less than 24 Consecutive Hours, Continuous Positive Airway Pressure (ICD-10-PCS; 2019-12-07)
PROC: 5A09357 Assistance with Respiratory Ventilation, Less than 24 Consecutive Hours, Continuous Positive Airway Pressure (ICD-10-PCS; 2019-12-08)
PROC: 5A09357 Assistance with Respiratory Ventilation, Less than 24 Consecutive Hours, Continuous Positive Airway Pressure (ICD-10-PCS; 2019-12-09)
PROC: 5A09357 Assistance with Respiratory Ventilation, Less than 24 Consecutive Hours, Continuous Positive Airway Pressure (ICD-10-PCS; 2019-12-11)
PROC: 5A09357 Assistance with Respiratory Ventilation, Less than 24 Consecutive Hours, Continuous Positive Airway Pressure (ICD-10-PCS; 2019-12-12)
PROC: 5A09357 Assistance with Respiratory Ventilation, Less than 24 Consecutive Hours, Continuous Positive Airway Pressure (ICD-10-PCS; 2019-12-13)
PROC: 5A09357 Assistance with Respiratory Ventilation, Less than 24 Consecutive Hours, Continuous Positive Airway Pressure (ICD-10-PCS; 2019-12-14)
DX: A41.9 Sepsis, unspecified organism (principal); J96.01 Acute respiratory failure with hypoxia; J15.6 Pneumonia due to other Gram-negative bacteria; G92 Toxic encephalopathy; I50.33 Acute on chronic diastolic (congestive) heart failure; J96.02 Acute respiratory failure with hypercapnia; J91.8 Pleural effusion in other conditions classified elsewhere; J94.2 Hemothorax; E87.0 Hyperosmolality and hypernatremia; E46 Unspecified protein-calorie malnutrition; J98.19 Other pulmonary collapse; I48.92 Unspecified atrial flutter; I48.20 Chronic atrial fibrillation, unspecified; I11.0 Hypertensive heart disease with heart failure; E86.1 Hypovolemia; E03.9 Hypothyroidism, unspecified; M06.9 Rheumatoid arthritis, unspecified; I48.0 Paroxysmal atrial fibrillation; I95.9 Hypotension, unspecified; Z60.2 Problems related to living alone; Z20.828 Contact with and (suspected) exposure to other viral communicable diseases; Z79.899 Other long term (current) drug therapy; Z79.82 Long term (current) use of aspirin; Z68.24 Body mass index [BMI] 24.0-24.9, adult; Z79.01 Long term (current) use of anticoagulants